=== PATIENT | female | born 1980 | race Caucasian/White ===

== ENCOUNTER → 2019-03-04 | Outpatient (CLI) | payer BC ==
--- NOTE | 2019-03-04 15:44 | Diagnostic Imaging Report ---
INDICATION: First trimester bleeding. There is an intrauterine gestational sac containing a pole. [place]-rump length measurement is approximately 13 mm consistent with 7 weeks 5 days. No heart motion could be detected consistent with embryonic demise. No perigestational sac hemorrhage is detected. Ovaries were not visualized due to overlying bowel gas. IMPRESSION: Findings consistent with 7 week 5 day intrauterine embryonic demise. Dictated by: Dictated on workstation # [id number]
== END ==
LOC: RAD 14:38
PROVIDERS: ATTEND Obstetrics & Gynecology
DX: O20.9 Hemorrhage in early pregnancy, unspecified (principal); Z87.59 Personal history of other complications of pregnancy, childbirth and the puerperium; Z3A.01 Less than 8 weeks gestation of pregnancy
CPT/HCPCS: 76801; 76817

== ENCOUNTER 2019-03-17 20:45 | Inpatient (IN) | payer BC ==
[~2019-03-17] VITALS: Ht 162.6 cm; Wt 101.2 kg
--- OUTSIDE RECORDS SUMMARY | 2019-03-17 20:50 | XMS REPORT ---
Author Author Migration, Doctor Organization [facility] Address Unknown Phone Unavailable Care Team Providers Care Residential Mental Health Worker Name Role Phone Migration, Doctor Unavailable Unavailable PROBLEMS Type Condition ICD9-CM Code IUK83-OG Code Onset Dates Condition Status SNOMED Code Problem General counseling for initiation of other contraceptive measures V25.02 Active 262814966192171 Problem Obesity, unspecified 278.00 Active 245889731 Problem Dietary surveillance and counseling V65.3 Active 143347140 ALLERGIES No Information ENCOUNTERS Encounter Location Date Diagnosis [place] [id number] [place] [phone] May, [place] [id number] [place] [phone] Mar, Major depressive disorder, single episode with anxious distress [address] [id number] [place] [phone] Mar, [place] [id number] [place] [phone] Mar, [place] [id number] [place] [phone] Mar, [place] [id number] [place] [phone] Mar, [place] [id number] [place] [address] [phone] March, [place] [id number] [place] [phone] Jan, IMMUNIZATIONS No Known Immunizations SOCIAL HISTORY Never Assessed REASON FOR VISIT [place] [place] VITAL SIGNS MEDICATIONS Medication Instructions Dosage Frequency Start Date End Date Duration Status Depo-Provera Contraceptive 150 mg/mL inject 150 mg by intramuscular route every 3 months March, Active RESULTS No Results PROCEDURES No Known procedures INSTRUCTIONS MEDICATIONS ADMINISTERED No Known Medications MEDICAL (GENERAL) HISTORY Type Description Date Medical History Pt has 7 children. The youngest is 8 months. She had 2 miscarriages.
[2019-03-17] MEDS ORDERED: ONDANSETRON 4 MG (ZOFRAN) ORAL DISSOLVE TAB PO STA (22:45)
[2019-03-17] MEDS ORDERED: ACETAMINOPHEN 500 MG TAB (TYLENOL) PO ONE (22:45)
[2019-03-17] MEDS ORDERED: NS IV 1000 ML 1,000 ML IV SCH ×2 (22:45→23:30)
[2019-03-17 22:47] LABS: CLARITY,URINE CLOUDY; COLOR,URINE YELLOW; GLUCOSE, URINE (UA) NEGATIVE (NEGATIVE); PH,URINE 8.5 (5-9); PROTEIN,URINE TRACE (NEGATIVE)
[2019-03-17 22:48] LABS: BACTERIA,URINE LARGE /HPF; BILIRUBIN,URINE NEGATIVE (NEGATIVE); KETONES,URINE NEGATIVE (NEGATIVE); LEUKOCYTE ESTERASE ,URINE 3+ (NEGATIVE); NITRITE,URINE POSITIVE (NEGATIVE); SQUAMOUS EPITHELIAL CELL,UR 0-2 /HPF; UROBILINOGEN,URINE 0.2 MG/DL (NORMAL)
[2019-03-17 23:01] LABS: HEMATOCRIT 34 % (35-52); HEMOGLOBIN 11.4 G/DL (11.5-16.0); MEAN CORPUSCULAR HEMOGLOBIN 30 PG (25-34); MEAN CORPUSCULAR HGB CONC 34 G/DL (32-36); MEAN CORPUSCULAR VOLUME 88 FL (80-99); MEAN PLATELET VOLUME 10.2 FL (7.4-10.4); PLATELET COUNT 302 10^3/uL (130-400); RED CELL DISTRIBUTION WIDTH 12.1 % (10.0-14.5); WHITE BLOOD COUNT 21.3 10^3/uL (4.3-11.0)
[2019-03-17 23:02] LABS: BASOPHILS % (AUTO) 0 % (0-10); EOSINOPHILS % (AUTO) 0 % (0-10); LYMPHOCYTES % (AUTO) 5 % (12-44); MONOCYTES % (AUTO) 5 % (0-12); NEUTROPHILS # (AUTO) 19.1 X 10^3 (1.8-7.8); NEUTROPHILS % (AUTO) 90 % (42-75)
[2019-03-17 23:14] LABS: BAND NEUTROPHILS 8 %; LYMPHOCYTES % (MANUAL) 4 %; MONOCYTES % (MANUAL) 3 %; NEUTROPHILS % (MANUAL) 84 %
[2019-03-17 23:15] LABS: BASOPHILS % (MANUAL) 0 %; EOSINOPHILS % (MANUAL) 0 %; METAMYELOCYTES % 0 %; MYELOCYTES % 1 %
--- NOTE | 2019-03-17 23:21 | ED Abdominal Pain ---
General Chief Complaint: Abdominal/GI Problems Stated Complaint: VOMITING, FEVER Nursing Triage Note: pt states abdominal and back pain since 10 am toda with n/v Sepsis Screen: No Definite Risk Source of Information: Patient History of Present Illness Date Seen by Provider: Mar 17, 2019 Time Seen by Provider: 23:21 Initial Comments 38-year-old female presenting with complaints of nausea, vomiting, fever and right flank pain. She states that she was feeling a little bit bad last night before going to bed. However this morning around 10 AM when she woke up she was feeling worse. She has had nausea and vomiting throughout the day. She denies any pain with urination. She has not had any frequency of urination. She denies having any foul discharge. Her vaginal bleeding from her recent miscarriage has been tapering off. She has no pain over the uterus or midline pain. She denies any change in her bowel movements. She denies having symptoms like this before. She was not keeping anything down at home. She did have an IUFD that was treated with medicine by Dr. Suzanna Sutton on March 04. She reports her vaginal bleeding from that is tapering off. Allergies and Home Medications Allergies Coded Allergies: No Known Drug Allergies (Unverified , 03/17/19) Home Medications No Active Prescriptions or Reported Meds Patient Home Medication List Home Medication List Reviewed: Yes Review of Systems Review of Systems Constitutional: chills, fever, malaise, weakness EENTM: No Symptoms Reported Respiratory: No Symptoms Reported Cardiovascular: No Symptoms Reported Gastrointestinal: See HPI, Abdominal Pain (right flank pain); Denies Constipated, Denies Diarrhea; Nausea, Vomiting Genitourinary: See HPI, Flank Pain (right sided flank pain) Musculoskeletal: see HPI, back pain (right sided flank pain) Skin: no symptoms reported Psychiatric/Neurological: No Symptoms Reported Endocrine: No Symptoms Reported Hematologic/Lymphatic: No Symptoms Reported Past Wweufir-Kmwchz-Gwljmu Hx Past Med/Social Hx: Reviewed Nursing Past Med/Soc Hx Patient Social History Alcohol Use: Denies Use Recreational Drug Use: No Smoking Status: Never a Smoker 2nd Hand Smoke Exposure: No Recent Foreign Travel: No Contact w/Someone Who Travel: No Recent Infectious Disease Expo: No Recent Hopitalizations: No Physical Abuse: No Sexual Abuse: No Mistreated: No Fear: No Seasonal Allergies Seasonal Allergies: No Past Medical History Surgeries: Yes Gallbladder Respiratory: No Cardiac: No Neurological: No Genitourinary: No Gastrointestinal: No Musculoskeletal: No Endocrine: No HEENT: No Cancer: No Psychosocial: No Integumentary: No Blood Disorders: No Physical Exam Vital Signs Vital Signs - First Documented 03/17/19 22:16 Temp 101.7 Pulse 126 Resp 15 B/P (MAP) 122/56 (78) Pulse Ox 97 O2 Delivery Room Air Capillary Refill : Less Than 3 Seconds Height/Weight/BMI Height: 5'5.00" Weight: 190lbs. oz. 86.843414gd; BMI Method:Stated General Appearance: WD/WN, moderate distress (appears ill and to not feel well) HEENT: PERRL/EOMI, other (dry mucus membranes) Neck: non-tender, supple Respiratory: chest non-tender, lungs clear, normal breath sounds, no respiratory distress, no accessory muscle use Cardiovascular: normal peripheral pulses, tachycardia Gastrointestinal: soft, no pulsatile mass, abnormal bowel sounds (hypoactive); No distended, No guarding, No rebound; tenderness (right flank pain wrapping around to her back and towards her kidney); No hernia, No mass Rectal: deferred Extremities: normal range of motion, non-tender, normal inspection, no pedal edema, no calf tenderness Back: CVA tenderness (R) Neurologic/Psychiatric: alert, oriented x 3 Skin: normal color, warm/dry; No rash Focused Exam Lactate Level 03/17/19 22:50: Lactic Acid Level 0.94 Lactic Acid Level Laboratory Tests Test 03/17/19 22:50 Lactic Acid Level 0.94 MMOL/L (0.50-2.00) Progress/Results/Core Measures Results/Orders Lab Results Laboratory Tests Test 03/17/19 22:30 03/17/19 22:50 Range/Units Urine Color YELLOW Urine Clarity CLOUDY Urine pH 8.5 5-9 Urine Specific [place] 1.010 L 1.016-1.022 Urine Protein TRACE NEGATIVE Urine Glucose (UA) NEGATIVE NEGATIVE Urine Ketones NEGATIVE NEGATIVE Urine Nitrite POSITIVE H NEGATIVE Urine Bilirubin NEGATIVE NEGATIVE Urine Urobilinogen 0.2 NORMAL MG/DL Urine Leukocyte Esterase 3+ H NEGATIVE Urine RBC (Auto) 3+ H NEGATIVE Urine RBC 2-5 H /HPF Urine WBC 10-25 H /HPF Urine Squamous Epithelial Cells 0-2 /HPF Urine Crystals NONE /LPF Urine Bacteria LARGE H /HPF Urine Casts NONE /LPF Urine Mucus NONE /LPF Urine Culture Indicated YES White Blood Count 21.3 H 4.3-11.0 10^3/uL Red Blood Count 3.83 L 4.35-5.85 10^6/uL Hemoglobin 11.4 L 11.5-16.0 G/DL Hematocrit 34 L 35-52 % Mean Corpuscular Volume 88 80-99 FL Mean Corpuscular Hemoglobin 30 25-34 PG Mean Corpuscular Hemoglobin Concent 34 32-36 G/DL Red Cell Distribution Width 12.1 10.0-14.5 % Platelet Count 302 130-400 10^3/uL Mean Platelet Volume 10.2 7.4-10.4 FL Neutrophils (%) (Auto) 90 H 42-75 % Lymphocytes (%) (Auto) 5 L 12-44 % Monocytes (%) (Auto) 5 0-12 % Eosinophils (%) (Auto) 0 0-10 % Basophils (%) (Auto) 0 0-10 % Neutrophils # (Auto) 19.1 H 1.8-7.8 X 10^3 Lymphocytes # (Auto) 1.0 1.0-4.0 X 10^3 Monocytes # (Auto) 1.0 0.0-1.0 X 10^3 Eosinophils # (Auto) 0.0 0.0-0.3 10^3/uL Basophils # (Auto) 0.0 0.0-0.1 10^3/uL Neutrophils % (Manual) 84 % Lymphocytes % (Manual) 4 % Monocytes % (Manual) 3 % Eosinophils % (Manual) 0 % Basophils % (Manual) 0 % Metamyelocytes % 0 % Myelocytes % 1 % Band Neutrophils 8 % Sodium Level 134 L 135-145 MMOL/L Potassium Level 3.5 L 3.6-5.0 MMOL/L Chloride Level 97 L 98-107 MMOL/L Carbon Dioxide Level 19 L 21-32 MMOL/L Anion Gap 18 H 5-14 MMOL/L Blood Urea Nitrogen 9 7-18 MG/DL Creatinine 0.62 0.60-1.30 MG/DL Estimat Glomerular Filtration Rate > 60 BUN/Creatinine Ratio 15 Glucose Level 129 H 70-105 MG/DL Lactic Acid Level 0.94 0.50-2.00 MMOL/L Calcium Level 8.9 8.5-10.1 MG/DL Corrected Calcium 8.8 8.5-10.1 MG/DL Total Bilirubin 0.7 0.1-1.0 MG/DL Aspartate Amino Transf (AST/SGOT) 12 5-34 U/L Alanine Aminotransferase (ALT/SGPT) 18 0-55 U/L Alkaline Phosphatase 48 40-136 U/L Total Protein 7.5 6.4-8.2 GM/DL Albumin 4.1 3.2-4.5 GM/DL My Orders Orders - BENJY MARTIN MD Ua Culture If Indicated (03/17/19 22:01) Cbc And Manual Diff (03/17/19 22:25) Comprehensive Metabolic Panel (03/17/19 22:25) Iv Heplock-Insert (Order) (03/17/19 22:28) Ns Iv 1000 Ml (Sodium Chloride 0.9%) (03/17/19 22:45) Acetaminophen Tablet (Tylenol Tablet) (03/17/19 22:45) Ondansetron Oral Dissolve Tab (Zofran (03/17/19 22:45) Urine Culture (03/17/19 22:30) Blood Culture (03/17/19 23:18) Lactic Acid Analyzer (03/17/19 23:18) Ceftriaxone For Iv Use (Rocephin For I (03/17/19 23:30) Ns Iv 1000 Ml (Sodium Chloride 0.9%) (03/17/19 23:30) Ketorolac Injection (Toradol Injection) (03/18/19 00:00) Fentanyl Injection (Sublimaze Injection (03/18/19 01:15) Ondansetron Injection (Zofran Injectio (03/18/19 01:15) Medications Given in ED Current Medications Medications Dose Ordered Sig/Fabrizio Route Start Time Stop Time Status Last Admin Dose Admin Acetaminophen 1,000 mg ONCE ONCE PO 03/17/19 22:45 03/17/19 22:46 DC 03/17/19 22:58 1,000 MG Ceftriaxone Sodium 1000 mg/ Sterile Water 10 ml @ 200 mls/hr ONCE ONCE IV 03/17/19 23:30 03/17/19 23:32 DC 03/18/19 00:07 200 MLS/HR Ketorolac Tromethamine 30 mg ONCE ONCE IVP 03/18/19 00:00 03/18/19 00:01 DC 03/18/19 00:06 30 MG Vital Signs/I&O 03/17/19 22:16 Temp 101.7 Pulse 126 Resp 15 B/P (MAP) 122/56 (78) Pulse Ox 97 O2 Delivery Room Air 03/18/19 00:00 Intake Total 1000 ml Balance 1000 ml Blood Pressure Mean: 78 Progress Progress Note #1: Time: 22:15 Progress Note check labs and give IVF for hydration with Zofran for nausea, Tylenol for fever. Progress Note #2: Time: 23:30 Progress Note On recheck her Urine is showing signs of UTI with nitrites, Bacteria, and WBC. She has elevated WBC to over 21K and left shift. She has normal Lactic acid. She reports feeling a little better after treatment was initiated and no more vomiting in the ED. She still has right flank pain and worse with palpation so will give Toradol and repeat IVF. Will give Rocephin 1 gm IV to help treat for UTI and what clinically appears to be pyelonephritis with her n/v and urine infection and fever with right flank pain. 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 Suzanna Sutton. Will check with Hospitalist, Dr. Hill who is electron tube assembler. For continued pain will try a dose of Fentanyl 50 mcg IV and give repeated Zofran dose so she does not start to get nauseated again with narcotic on board. Progress Note #4: Time: 01:12 Progress Note D/w Dr. Hill and she accepted admit. Will check a CT scan as well with her having continued pain and recent IUFD. Continue maintenance fluids and prn Fentanyl, Zofran, Toradol. Diagnostic Imaging Diagonstic Imaging: CT Plain Films/CT/US/NM/MRI: abdomen, pelvis Comments Stat Rad reading: Impression: 1. Mild left hydronephrosis secondary to a 2-3 mm stone in the left proximal ureter. 2. 5 cm right ovary with surrounding free fluid, possibly representing an underlying ruptured cyst. Recommend pelvic ultrasound. Radiologist: Dori Schofield MD. Study read at 0219 and initial results transmitted 0234. Reviewed: Reviewed Night [facility] Study, Reviewed by Me Departure Communication (Admissions) Time/Spoke to Admitting Phy: 01:[address] Hill at 0112 and she accepted pt for admit. Will continue with prn Toradol, Fentanyl, Zofran. Maintenance fluids. Check a CT scan of Abdomen/pelvis prior to transfer to [facility]. Impression Primary Impression: Acute pyelonephritis Additional Impressions: Nausea and vomiting in adult Acute right flank pain Disposition: ADMITTED INPATIENT Condition: Stable Admissions Decision to Admit Reason: Admit from ER (General) Decision to Admit/Date: Mar 18, 2019 Time/Decision to Admit Time: 01:12 Departure-Patient Inst. Referrals: CONOR SUTTON (PCP) Primary Care Physician Scripts No Active Prescriptions or Reported Meds Images Torso/Trunk 1 - Other-See Progress Note Progress right flank pain wrapping around from her back and kidney area. BENJY MARTIN MD Mar 17, 2019 23:21
[2019-03-17 23:23] LABS: ALANINE AMINOTRANSFERASE 18 U/L (0-55); ALKALINE PHOSPHATASE 48 U/L (40-136); BILIRUBIN,TOTAL 0.7 MG/DL (0.1-1.0); BUN/CREATININE RATIO 15; CALCIUM 8.9 MG/DL (8.5-10.1); CARBON DIOXIDE 19 MMOL/L (21-32); CHLORIDE 97 MMOL/L (98-107); CREATININE SERUM 0.62 MG/DL (0.60-1.30); GFR ESTIMATED > 60; GLUCOSE 129 MG/DL (70-105); POTASSIUM 3.5 MMOL/L (3.6-5.0); SODIUM 134 MMOL/L (135-145); TOTAL PROTEIN 7.5 GM/DL (6.4-8.2)
[2019-03-17 23:24] LABS: ALBUMIN 4.1 GM/DL (3.2-4.5)
[2019-03-17] MEDS ORDERED: cefTRIAXone FOR IV USE 1,000 MG in WATER (STERILE) FOR INJECTION 10 ML IV ONE (23:30)
[2019-03-18] VITALS (21 sets, daily range): BP systolic 90–140; BP diastolic 43–93
[2019-03-18] MEDS ORDERED: KETOROLAC 30 MG/ML VIAL IVP ONE
[2019-03-18] MEDS ORDERED: fentaNYL INJECTION 100 MCG/2 ML AMP IVP ONE (01:15)
[2019-03-18] MEDS ORDERED: ONDANSETRON 4 MG/2 ML (SDV) Z0FRAN IVP ONE (01:15)
[2019-03-18] MEDS ORDERED: NS 50 ML (IVPB) BAG IV ONE (01:45)
[2019-03-18] MEDS ORDERED: IOHEXOL 350 MG/ML 100 ML (OMNIPAQUE 350) VIAL IV ONE (01:45)
[2019-03-18] MEDS ORDERED: HOLD METFORMIN - RECEIVED CONTRAST 20 ML VIAL IV SCH (01:45)
[2019-03-18] MEDS ORDERED: CATHETER FLUSH 10 ML SYR IV PRN ×2 (01:45→05:00)
--- NOTE | 2019-03-18 03:45 | NUR ---
Report received from Elena in ED at 0243. Pt arrived to floor at 0345. DIOGENES BEARD admitted to room 411-1, with an admitting diagnosis of Acute pyelonephritis, on 03/18/19 from ED via EMS transfer, accompanied by EMS staff. DIOGENES BEARD introduced to surroundings, call light, bed controls, phone, TV, temperature control, lights, meal times, smoking policy, visitor policy, side rail policy, bathrooms and showers. Patient Rights given to patient in the handbook. DIOGENES BEARD verbalizes understanding that [facility] is not responsible for the loss or damage to any personal effects or valuables that are kept in the patients posession during their hospitalization. DIOGENES BEARD verbalizes understanding of Interdisciplinary Patient Education. Patient and/or family were informed about the Rapid Response Team and its purpose.
[2019-03-18] MEDS ORDERED: NS IV 1000 ML 1,000 ML ONE (04:11)
[2019-03-18] MEDS ORDERED: ONDANSETRON 4 MG/2 ML (SDV) Z0FRAN ONE (04:37)
[2019-03-18] MEDS ORDERED: fentaNYL INJECTION 100 MCG/2 ML AMP ONE (04:40)
[2019-03-18] MEDS ORDERED: fentaNYL INJECTION 100 MCG/2 ML AMP IV PRN (05:00)
[2019-03-18] MEDS: ONDANSETRON 4 MG/2 ML (SDV) Z0FRAN IV PRN ×2 (05:02→17:22)
[2019-03-18] MEDS: CATHETER FLUSH 10 ML SYR IV SCH ×3 (05:03→21:40)
[2019-03-18] MEDS: NS IV 1000 ML 1,000 ML IV SCH ×2 (05:03→09:46)
[2019-03-18 06:39] LABS: ALANINE AMINOTRANSFERASE 17 U/L (0-55); ALBUMIN 3.5 GM/DL (3.2-4.5); ALKALINE PHOSPHATASE 46 U/L (40-136); BILIRUBIN,TOTAL 0.7 MG/DL (0.1-1.0); BUN/CREATININE RATIO 11; CALCIUM 8.1 MG/DL (8.5-10.1); CARBON DIOXIDE 16 MMOL/L (21-32); CHLORIDE 107 MMOL/L (98-107); GFR ESTIMATED > 60; GLUCOSE 127 MG/DL (70-105); POTASSIUM 3.8 MMOL/L (3.6-5.0); SODIUM 137 MMOL/L (135-145); TOTAL PROTEIN 6.2 GM/DL (6.4-8.2)
--- NOTE | 2019-03-18 07:17 | Diagnostic Imaging Report ---
PROCEDURE: CT abdomen and pelvis with contrast. TECHNIQUE: Multiple contiguous axial images were obtained through the abdomen and pelvis after administration of intravenous contrast. Auto Exposure Controls were utilized during the CT exam to meet ALARA standards for radiation dose reduction. INDICATION: Right flank pain Lung bases are clear. Liver appears normal. Gallbladder is surgically absent. Pancreas is normal. Spleen is not enlarged. Adrenals are normal. There is mild right hydronephrosis. There is a 1 mm calcification in the distal right ureter seen on page 78. This is near the ureterovesical junction. There is a 5 mm stone in the proximal left ureter but is not causing any appreciable obstruction. The appendix is normal. Small bowel is not dilated. There is no intraperitoneal free air or free fluid. Urinary bladder is normal. Uterus is unremarkable. Left adnexa is normal. There is a complex lesion in the right adnexa measuring 4.2 x 7.6 x 5.0 cm. This has fluid and soft tissue components. There is no calcification or air within it. IMPRESSION: There appear to be stones in both ureters. On the right appears to be approximately a 1 mm stone faintly seen near the right ureterovesical junction. There is mild hydronephrosis of the right kidney. There is a 5 mm stone in the proximal left ureter that is not causing any obvious obstruction. There is a complex mass of the right adnexa. Differential considerations would include ectopic , tubo-ovarian abscess or neoplasm. Further evaluation with ultrasound recommended I agree with preliminary interpretation. Dictated by: Dictated on workstation # [id number]
[2019-03-18 07:21] LABS: BASOPHILS % (AUTO) 0 % (0-10); EOSINOPHILS % (AUTO) 0 % (0-10); HEMATOCRIT 33 % (35-52); LYMPHOCYTES % (AUTO) 4 % (12-44); MEAN CORPUSCULAR HEMOGLOBIN 30 PG (25-34); MEAN CORPUSCULAR HGB CONC 33 G/DL (32-36); MEAN CORPUSCULAR VOLUME 90 FL (80-99); MEAN PLATELET VOLUME 10.3 FL (7.4-10.4); MONOCYTES % (AUTO) 7 % (0-12); NEUTROPHILS # (AUTO) 26.5 X 10^3 (1.8-7.8); NEUTROPHILS % (AUTO) 90 % (42-75); PLATELET COUNT 258 10^3/uL (130-400); RED CELL DISTRIBUTION WIDTH 12.5 % (10.0-14.5); WHITE BLOOD COUNT 29.6 10^3/uL (4.3-11.0)
[2019-03-18] MEDS: KETOROLAC 30 MG/ML VIAL IV PRN ×2 (07:59→13:29)
[2019-03-18 08:00] LABS: LYMPHOCYTES % (MANUAL) 1 %; MONOCYTES % (MANUAL) 4 %; NEUTROPHILS % (MANUAL) 95 %; RBC MORPH NORMAL
[2019-03-18] MEDS ORDERED: ACETAMINOPHEN 650 MG SUPP (TYLENOL) PR PRN (08:15)
[2019-03-18] MEDS ORDERED: HYDROmorphone 2 MG/ML VIAL (DILAUDID) ONE (08:30)
[2019-03-18] MEDS: HYDROmorphone 2 MG/ML VIAL (DILAUDID) IV PRN (08:38)
[2019-03-18] MEDS ORDERED: PIPERACILLIN/TAZO 4.5 GM/NS 100 ML IV NR ×2 (08:45)
[2019-03-18] MEDS ORDERED: NS IV 1000 ML 1,000 ML IV SCH (08:45)
--- NOTE | 2019-03-18 08:49 | Pulmonary Consultation ---
History of Present Illness History of Present Illness Date of Consultation 03/18/19 08:43 Time Seen by Provider: 15:27 Date of Admission History of Present Illness 38yo with recent miscarriage presented to ED secondary to worsening N/V, right flank pain, and fever. No dysuria and no abnormal vaginal discharge. Vaginal bleeding has improved. Pt did have a IUFD. I was called by Dr. Hill to see pt on a urgent bases secondary to worsening sepsis. Pt has worsening abdominal pain 09/09. I am going to send her to ICU. I have discussed patient with Dr. Costa, and Dr. Hill. 3 Allergies and Home Medications Allergies Coded Allergies: No Known Drug Allergies (Unverified , 03/17/19) Home Medications No Active Prescriptions or Reported Meds Past Hicatht-Vrbhkg-Wdhbws Hx Past Med/Social Hx: Reviewed Nursing Past Med/Soc Hx Patient Social History Alcohol Use: Denies Use Recreational Drug Use: No Smoking Status: Never a Smoker 2nd Hand Smoke Exposure: No Recent Foreign Travel: No Contact w/Someone Who Travel: No Recent Infectious Disease Expo: No Recent Hopitalizations: No Physical Abuse: No Sexual Abuse: No Mistreated: No Fear: No Immunizations Up To Date Date of Pneumonia Vaccine: Mar 18, 2014 Seasonal Allergies Seasonal Allergies: No Past Medical History Surgeries: Yes Gallbladder Respiratory: No Cardiac: No Neurological: No Genitourinary: No Gastrointestinal: No Musculoskeletal: No Endocrine: No HEENT: No Cancer: No Psychosocial: No Integumentary: No Blood Disorders: No Review of Systems Time Seen by Provider: 15:27 Constitutional: Fever, Chills, Sweats, Weakness, Malaise, Other Eyes: No: Pain, Vision change, Conjunctivae inflammation, Eyelid inflammation, Other, Redness ENT: No: Ear pain, Ear discharge, Nose pain, Nose discharge, Nose congestion, Mouth pain, Mouth swelling, Throat pain, Throat swelling, Other Respiratory: No: Cough, Dry, Shortness of breath, SOB with excertion, Wheezing , Hemoptysis, Pleuritic Pain, Sputum, Wheezing, Other Cardiovascular: No: Chest Pain, Palpitations, Orthopnea, Paroxysmal Noc. Dyspnea, Edema, Lt Headedness, Other Gastrointestinal: Nausea, Vomiting, Abdominal Pain, Constipation Genitourinary: No Dysuria, No Frequency, No Incontinence, No Hematuria, No Retention, No Other Sepsis Event Evaluation Height, Weight, BMI Height: 5'4.00" Weight: 223lbs. 0.0oz. 101.368578zj; 38.3 BMI Method:Stated Exam Exam Vital Signs Date Time Temp Pulse Resp B/P (MAP) Pulse Ox O2 Delivery O2 Flow Rate FiO2 03/18/19 08:38 101.4 03/18/19 07:59 101.4 03/18/19 03:45 100.5 124 20 140/78 (98) 100 Room Air 03/18/19 03:45 100.5 124 20 140/78 100 Room Air 03/18/19 03:45 98 Room Air 03/18/19 03:04 98.5 116 16 113/60 (77) 98 03/17/19 22:16 101.7 126 15 122/56 (78) 97 Room Air I & O 03/18/19 07:00 Intake Total 2009 ml Balance 2009 ml Height & Weight Height: 5'4.00" Weight: 223lbs. 0.0oz. 101.526302iy; 38.3 BMI Method:Stated General Appearance: Anxious, Moderate Distress HEENT: PERRL/EOMI, Normal ENT Inspection, Pharynx Normal Neck: Full Range of Motion, Normal Inspection, Non Tender, Supple Respiratory: Chest Non Tender, Lungs Clear, Normal Breath Sounds, No Accessory Muscle Use, No Respiratory Distress Cardiovascular: Regular Rate, Rhythm, No Edema, No Gallop, No JVD, No Murmur, Normal Peripheral Pulses Capillary Refill: Less Than 3 Seconds Gastrointestinal: soft, no pulsatile mass, abnormal bowel sounds (hypoactive); No distended, No guarding, No rebound; tenderness (right flank pain wrapping around to her back and towards her kidney); No hernia, No mass Extremity: Normal Capillary Refill, Normal Inspection, No Pedal Edema Neurologic/Psychiatric: Alert, Oriented x3 Skin: Normal Color, Warm/Dry Lymphatic: No Adenopathy Results Lab Laboratory Tests 03/17/19 22:50 03/18/19 05:25 03/18/19 07:15 Assessment/Plan Assessment/Plan Sepsis secondary to UTI vs intraabdominal -US pending of abdomen -CT scan reviewed with Dr. Costa -Suman cultures are pending -Dr. Meredith is also following Abdominal pain with Abscess VS ovarian mass -Check abdominal US -Transfer to ICU -Start severe sepsis protocol -Dr. Costa consulted -Give 1 liter of IVF now -Recheck LA - Sinus tach secondary to sepsis -Transfer to ICU UTI Anemia -Monitor Bilateral ureteral stone - nonobstructing -Urology is following Metabolic acidosis -IVF -Monitor Miscarriage was 03/04 -Dr. Meredith following CHARLY OLIVER DO Mar 18, 2019 08:49
[2019-03-18] MEDS ORDERED: LACTATED RINGERS IV PRN (09:00)
[2019-03-18] MEDS ORDERED: LEVOFLOXACIN 500 MG/100 ML IV 100 ML IV SCH (09:00)
--- NOTE | 2019-03-18 09:06 | Consultation ---
History of Present Illness History of Present Illness Patient Consulted On(vijay/time) 03/18/19 09:01 Time Seen by Provider: 08:37 History of Present Illness Surgery asked to consult regarding Acute Abdomen. HPI per ED: 38-year-old female presenting with complaints of nausea, vomiting, fever and right flank pain. She states that she was feeling a little bit bad last night before going to bed. However this morning around 10 AM when she woke up she was feeling worse. She has had nausea and vomiting throughout the day. She denies any pain with urination. She has not had any frequency of urination. She denies having any foul discharge. Her vaginal bleeding from her recent miscarriage has been tapering off. She has no pain over the uterus or midline pain. She denies any change in her bowel movements. She denies having symptoms like this before. She was not keeping anything down at home. She did have an IUFD that was treated with medicine by Dr. Suzanna Meredith on March 04. She reports her vaginal bleeding from that is tapering off. When I spoke to pt this am she states her pain is 10 out of 10, mostly suprapubic and RLQ. Movements make the pain worse. It is a sharp stabbing and continuous pain. Only pain medicines are helping with the pain. Allergies and Home Medications Allergies Coded Allergies: No Known Drug Allergies (Unverified , 03/17/19) Home Medications No Active Prescriptions or Reported Meds Patient Home Medication List Home Medication List Reviewed: Yes Past Cmctnue-Gxezmo-Jnpdwh Hx Patient Social History Alcohol Use: Denies Use Recreational Drug Use: No Smoking Status: Never a Smoker 2nd Hand Smoke Exposure: No Recent Foreign Travel: No Contact w/Someone Who Travel: No Recent Infectious Disease Expo: No Recent Hopitalizations: No Immunizations Up To Date Date of Pneumonia Vaccine: Mar 18, 2014 Seasonal Allergies Seasonal Allergies: No Surgeries History of Surgeries: Yes Surgeries: Section, Gallbladder Respiratory History of Respiratory Disorde: No Cardiovascular History of Cardiac Disorders: No Neurological History of Neurological Disord: No Reproductive System : No Hx Total # of Abortions (Spona: 1 Hx Reproductive Disorders: No Sexually Transmitted Disease: No Genitourinary History of Genitourinary Disor: No Gastrointestinal History of Gastrointestinal Di: No Musculoskeletal History of Musculoskeletal Dis: No Endocrine History of Endocrine Disorders: No HEENT History of HEENT Disorders: No Cancer History of Cancer: No Psychosocial History of Psychiatric Problem: No Integumentary History of Skin or Integumenta: No Blood Transfusions History of Blood Disorders: No Family Medical History Significant Family History: Heart Disease (Mother), Diabetes (Father), Hypertension (Mother) Review of Systems-General Constitutional: chills, diaphoresis, fever, malaise, weakness EENTM: No eye pain, No mouth pain, No mouth swelling, No epistaxis Respiratory: No cough, No dyspnea on exertion, No hemoptysis Cardiovascular: No chest pain, No edema, No palpitations Gastrointestinal: RLQ, abdominal pain; No constipation, No diarrhea, No dysphagia, No jaundice; nausea, vomiting Genitourinary: No dysuria, No frequency, No hematuria Musculoskeletal: back pain; No joint pain, No joint swelling; muscle stiffness Skin: No change in color, No change in hair/nails Psychiatric/Neurological: Denies Anxiety, Denies Depressed; Headache; Denies Tremors Other pt denies any abnormal bruising or bleeding, no heat or cold intolerance Physical Exam-General Problems Physical Exam Vital Signs Vital Signs - First Documented 03/17/19 22:16 Temp 101.7 Pulse 126 Resp 15 B/P (MAP) 122/56 (78) Pulse Ox 97 O2 Delivery Room Air Capillary Refill : Less Than 3 Seconds General Appearance: WD/WN, moderate distress Eyes: Bilateral Eye PERRL, Bilateral Eye EOMI HEENT: pharynx normal; No scleral icterus (R), No scleral icterus (L), No pale conjunctivae (R), No pale conjunctivae (L) Neck: non-tender, full range of motion, supple, normal inspection Respiratory: chest non-tender, lungs clear, normal breath sounds, no respiratory distress, no accessory muscle use Cardiovascular: no edema, no murmur, tachycardia Gastrointestinal: no organomegaly, no pulsatile mass, distended, guarding, tenderness (Diffusely but most in RLQ and suprapubic) Back: no CVA tenderness, no vertebral tenderness Extremities: normal range of motion, non-tender, normal inspection, no pedal edema, no calf tenderness Neurologic/Psychiatric: report analyst II-XII nml as tested, no motor/sensory deficits, alert, normal mood/affect, oriented x 3 Skin: normal color, damp Lymphatic: no adenopathy (neck, axilla or groin) Data Review Labs Laboratory Tests 03/17/19 22:30: Urine Color YELLOW, Urine Clarity CLOUDY, Urine pH 8.5, Urine Specific [place] 1.010L, Urine Protein TRACE, Urine Glucose (UA) NEGATIVE, Urine Ketones NEGATIVE , Urine Nitrite POSITIVEH, Urine Bilirubin NEGATIVE, Urine Urobilinogen 0.2, Urine Leukocyte Esterase 3+H, Urine RBC (Auto) 3+H, Urine RBC 2-5H, Urine WBC 10 -25H, Urine Squamous Epithelial Cells 0-2, Urine Crystals NONE, Urine Bacteria LARGEH, Urine Casts NONE, Urine Mucus NONE, Urine Culture Indicated YES 03/17/19 22:50: White Blood Count 21.3H, Red Blood Count 3.83L, Hemoglobin 11.4L, Hematocrit 34L , Mean Corpuscular Volume 88, Mean Corpuscular Hemoglobin 30, Mean Corpuscular Hemoglobin Concent 34, Red Cell Distribution Width 12.1, Platelet Count 302, Mean Platelet Volume 10.2, Neutrophils (%) (Auto) 90H, Lymphocytes (%) (Auto) 5L , Monocytes (%) (Auto) 5, Eosinophils (%) (Auto) 0, Basophils (%) (Auto) 0, Neutrophils # (Auto) 19.1H, Lymphocytes # (Auto) 1.0, Monocytes # (Auto) 1.0, Eosinophils # (Auto) 0.0, Basophils # (Auto) 0.0, Neutrophils % (Manual) 84, Lymphocytes % (Manual) 4, Monocytes % (Manual) 3, Eosinophils % (Manual) 0, Basophils % (Manual) 0, Metamyelocytes % 0, Myelocytes % 1, Band Neutrophils 8, Sodium Level 134L, Potassium Level 3.5L, Chloride Level 97L, Carbon Dioxide Level 19L, Anion Gap 18H, Blood Urea Nitrogen 9, Creatinine 0.62, Estimat Glomerular Filtration Rate > 60, BUN/Creatinine Ratio 15, Glucose Level 129H, Lactic Acid Level 0.94, Calcium Level 8.9, Corrected Calcium 8.8, Total Bilirubin 0.7, Aspartate Amino Transf (AST/SGOT) 12, Alanine Aminotransferase ( ALT/SGPT) 18, Alkaline Phosphatase 48, Total Protein 7.5, Albumin 4.1 03/18/19 05:25: Sodium Level 137, Potassium Level 3.8, Chloride Level 107, Carbon Dioxide Level 16L, Anion Gap 14, Blood Urea Nitrogen 8, Creatinine 0.70, Estimat Glomerular Filtration Rate > 60, BUN/Creatinine Ratio 11, Glucose Level 127H, Calcium Level 8.1L, Corrected Calcium 8.5, Total Bilirubin 0.7, Aspartate Amino Transf ( AST/SGOT) 18, Alanine Aminotransferase (ALT/SGPT) 17, Alkaline Phosphatase 46, Total Protein 6.2L, Albumin 3.5 03/18/19 07:15: White Blood Count 29.6H, Red Blood Count 3.67L, Hemoglobin 11.0L, Hematocrit 33L , Mean Corpuscular Volume 90, Mean Corpuscular Hemoglobin 30, Mean Corpuscular Hemoglobin Concent 33, Red Cell Distribution Width 12.5, Platelet Count 258, Mean Platelet Volume 10.3, Neutrophils (%) (Auto) 90H, Lymphocytes (%) (Auto) 4L , Monocytes (%) (Auto) 7, Eosinophils (%) (Auto) 0, Basophils (%) (Auto) 0, Neutrophils # (Auto) 26.5H, Lymphocytes # (Auto) 1.0, Monocytes # (Auto) 2.0H, Eosinophils # (Auto) 0.0, Basophils # (Auto) 0.0, Neutrophils % (Manual) 95, Lymphocytes % (Manual) 1, Monocytes % (Manual) 4, Blood Morphology Comment NORMAL 03/18/19 08:55: Assessment/Plan Assessment/Plan Assessment/Plan Acute Abdominal pain - RLQ Septic Ovarian mass - R/O TOA vs. Torsed Ovary vs. Ruptured Hemorrhagic ovarian cyst I reviewed the CT myself and the Radiologist; we were able to find the appendix , so this is all ovarian in nature. I am unsure if this is an abscess, torsed ovary or just a very bad cyst. She appears septic with WBC increasing and is being sent to the ICU with fluids, IV ABX and pain control. She is scheduled to go down as soon as possible for a vaginal US to look at this area and may still need to go for Diagnostic Laparoscopy. She denies any hx of STD and is monogamous; therefore TOA is lower on the list. Will make more recommendations after we get US results. Clinical Quality Measures DVT/VTE Risk/Contraindication: Risk Factor Score Per Nursin RFS Level Per Nursing on Admit: 2=Moderate NATALIYA MENG DO Mar 18, 2019 09:06
--- NOTE | 2019-03-18 09:26 | History & Physical-Hospitalist ---
History of Present Illness HPI/Chief Complaint CC: Severe abdominal pain with fever and tachycardia HPI: This is a 38-year-old white female who was transferred from [facility] due to acute pyelonephritis with fever of 101 but since she has had a recent procedure as I understood by Dr. Meredith some sort of uterine procedure I requested a CT scan and that was done revealing bilateral kidney stones in addition to a very large right deep pelvic mass that was a new finding per CT scan. She had suffered a miscarriage 2 weeks ago did not require a procedure as originally thought placed on methotrexate for medical removal of the miscarriage and her quantitative hCG was monitored by Dr. Meredith. Upon evaluation of the CT scan and considering her tachycardia and continued fever and 1 dose of Rocephin that was given early this morning in the ER she was placed on double coverage of Zosyn and Levaquin and Dr. Branham was consulted who gave her a fluid bolus and transferred up to the ICU for severe sepsis in addition to DrEren Edmond was consulted for urgent need of surgery which will be completed today to remove the mass in addition to for kidney stones with mild hydronephrosis. Currently she is just fatigued and having severe right lower quadrant abdominal pain with rebound but improved with Dilaudid. I appreciate all consultants help on this very complex case. Source: patient, RN/MD, old records Exam Limitations: no limitations Date Seen 03/18/19 Time Seen by a Provider: 09:00 Attending Physician Linda Sue Angela Referring Physician Date of Admission Mar 18, 2019 at 01:12 Home Medications & Allergies Home Medications Reviewed patient Home Medication Reconciliation performed by pharmacy medication reconciliations commercial pest control technician and/or nursing. Patients Allergies have been reviewed. Allergies Allergies Coded Allergies No Known Drug Allergies (Unverified03/17/19) Past Bayghgy-Czeuea-Ykpgnh Hx Past Med/Social Hx: Reviewed Nursing Past Med/Soc Hx, Reviewed and Corrections made Patient Social History Alcohol Use: Denies Use Recreational Drug Use: No Smoking Status: Never a Smoker 2nd Hand Smoke Exposure: No Recent Foreign Travel: No Contact w/other who traveled: No Recent Hopitalizations: No Recent Infectious Disease Expo: No Immunizations Up To Date Date of Pneumonia Vaccine: Mar 18, 2014 Seasonal Allergies Seasonal Allergies: No Past Medical History Surgeries: Section, Gallbladder : No Hx Total # of Abortions(Spont): 1 Reproductive: No Sexually Transmitted Disease: No History of Blood Disorders: No Family History Heart Disease (Mother), Diabetes (Father), Hypertension (Mother) Review of Systems Constitutional: see HPI, chills, diaphoresis, dizziness, fever, malaise, weakness EENTM: no symptoms reported Respiratory: no symptoms reported Cardiovascular: no symptoms reported Gastrointestinal: abdominal pain (RLQ), loss of appetite, nausea, vomiting Genitourinary: decreased output, frequency Musculoskeletal: back pain Skin: no symptoms reported Psychiatric/Neurological: No Symptoms Reported All Other Systems Reviewed Negative Unless Noted: Yes Physical Exam Physical Exam Vital Signs Vital Signs - First Documented 03/17/19 22:16 Temp 101.7 Pulse 126 Resp 15 B/P (MAP) 122/56 (78) Pulse Ox 97 O2 Delivery Room Air Capillary Refill : Less Than 3 Seconds Height, Weight, BMI Height: 5'4.00" Weight: 223lbs. 0.0oz. 101.136684ih; 38.3 BMI Method:Stated General Appearance: WD/WN, Anxious, Moderate Distress HEENT: PERRL/EOMI, TMs Normal, Normal ENT Inspection, Pharynx Normal, Moist Mucous Membranes Neck: Full Range of Motion, Normal Inspection, Non Tender Respiratory: Chest Non Tender, Lungs Clear, Normal Breath Sounds, No Accessory Muscle Use, No Respiratory Distress Cardiovascular: No Edema, No Gallop, No JVD, No Murmur, Normal Peripheral Pulses, Tachycardia Gastrointestinal: Abnormal Bowel Sounds, Distended, Guarding, Mass, Rebound, Tenderness Back: Normal Inspection, No CVA Tenderness, No Vertebral Tenderness Extremity: Normal Capillary Refill, Normal Inspection, Normal Range of Motion, Non Tender, No Calf Tenderness, No Pedal Edema Neurologic/Psychiatric: Alert, Oriented x3, No Motor/Sensory Deficits, Normal Mood/Affect Skin: Normal Color, Warm/Dry Results Results/Procedures Labs Laboratory Tests 03/17/19 22:50 03/18/19 05:25 03/18/19 07:15 Patient resulted labs reviewed. Assessment/Plan Admission Diagnosis Assessment: Severe sepsis Tachycardia Acute abdomen in need of urgent surgery Right lower quadrant abdominal mass in need of urgent surgery by Dr. Costa Recent miscarriage hCG quantitative 92 Fever New kidney stones Pyelonephritis Leukocytosis worsened so added double coverage Zosyn and Levaquin antibiotics after 1 dose of Rocephin given Plan: ICU transfer line IV fluid bolus Appreciate Dr. Branham consultation Dr. Costa will take patient to surgery urgently today Zosyn and Levaquin double coverage until cultures completed Dr. Valero consulted appreciate his recommendations for kidney stones Admission Status: Inpatient Order (span 2 midnights) Reason for Inpatient Admission: Acute abdomen with severe sepsis Critical Care Critically Ill Patient Diagnosis/Problems Diagnosis/Problems (1) Severe sepsis Status: Acute (2) Acute abdomen Status: Acute (3) Abdominal or pelvic swelling, mass, or lump, right lower quadrant Status: Acute (4) Leukocytosis Status: Acute (5) Tachycardia Status: Acute (6) Miscarried within last 12 months Status: Acute (7) Rebound abdominal tenderness Status: Acute (8) Acute pyelonephritis Status: Acute (9) Nausea and vomiting in adult Status: Acute (10) Acute right flank pain Status: Acute (11) Metabolic acidosis Status: Acute (12) Kidney stones Status: Acute (13) Hydronephrosis Status: Acute Qualifiers: Hydronephrosis type: with renal calculous obstruction Qualified Codes: N13.2 - Hydronephrosis with renal and ureteral calculous obstruction Clinical Quality Measures DVT/VTE Risk/Contraindication: Risk Factor Score Per Nursin RFS Level Per Nursing on Admit: 2=Moderate LINDA SUE DO Mar 18, 2019 09:26
--- NOTE | 2019-03-18 09:30 | NUR ---
Patient transferred to ICU5 at this time per Dr. Branham and Liz's orders. Bedside report given to JOSH Hua. Patient oriented to new room and hooked up to monitors.JOSH Hua to assume care of patient at this time.
--- NOTE | 2019-03-18 09:32 | Consultation ---
History of Present Illness History of Present Illness Patient Consulted On(vijay/time) 03/18/19 09:27 Date Seen by Provider: Mar 18, 2019 Time Seen by Provider: 10:45 Reason for Visit: Right lower quadrant pain and mass History of Present Illness 38 year old female admitted to Dr. Hill for fever and pyelonephritis. She presented to the ED at [facility] with complaint of right lower quadrant. There she was febrile with white count of 21,000, normal lactic acid and uine with WBC, nitrites, bacteria consistent with UIT/pyelonephtiris. She was transferred to [facility] for admission to the hospitalist service. CT done in the ED at [facility], there was a 5-6 cm complex ovarian mass. She states that she was at work on Friday night and began having right lower quadrant pain. States she didn't leave work and that she was having pain with movement and palpation of the side. This has been associated with nausea and palpation. She has had pain medication and received Rocephin in the ED. States that the pain is better after the pain medication. She states she also feels achy with muscle aches and pains. States that the pain radiates to the flank and back on the right side and to the left abdomen, She states it was 10/ 10 but now is 4/10 (after pain medications). She had a repeat CT today and this confirmed a complex right adnexal mass in the right adnexa and also mild right hydronephrosis and stones in both the right and left kidnets. She Currently is complaining of a headache but that has started since receiving pain medication. She has no chest pain, no cough, no change in bowel function. Patient is a with recent miscarriage. I saw her 03/04/19 for treatment of miscarriage. She has stopped bleeding since miscarriage. Miscarriage was / (US showed 7 week demise, but did not visualize the ovaries). Has not yet had a follow up HCG. Last HCG was 03/04 and was 15,000. Had medical management with misoprostol and called us 03/08 stating she thought she had completed miscarriage and was instructed to have follow up HCG 1-2 weeks after bleeding had stopped. Last HCG was 15,000 and has not had repeat HCG. she has no abnormal discharge. She is in a monogamous relationship. No history of PID Allergies and Home Medications Allergies Coded Allergies: No Known Drug Allergies (Unverified , 03/17/19) Home Medications No Active Prescriptions or Reported Meds Patient Home Medication List Home Medication List Reviewed: Yes Past Cxitvjt-Svgnfg-Dmrghb Hx Past Med/Social Hx: Reviewed Nursing Past Med/Soc Hx Patient Social History Alcohol Use: Denies Use Recreational Drug Use: No Smoking Status: Never a Smoker 2nd Hand Smoke Exposure: No Recent Foreign Travel: No Contact w/Someone Who Travel: No Recent Infectious Disease Expo: No Recent Hopitalizations: No Physical Abuse: No Sexual Abuse: No Mistreated: No Fear: No Immunizations Up To Date Date of Pneumonia Vaccine: Mar 18, 2014 Seasonal Allergies Seasonal Allergies: No Past Medical History Surgeries: Yes Section, Gallbladder Respiratory: No Cardiac: No Neurological: No : No Hx : 12 Hx Para: 7 Hx Total # of Abortions (Sp): 5 Reproductive Disorders: No Sexually Transmitted Disease: No Genitourinary: No Gastrointestinal: No Musculoskeletal: No Endocrine: No HEENT: No Cancer: No Psychosocial: No Integumentary: No Blood Disorders: No Family Medical History Heart Disease (Mother), Diabetes (Father), Hypertension (Mother) Review of Systems-General Constitutional: fever, malaise EENTM: no symptoms reported Respiratory: no symptoms reported Cardiovascular: no symptoms reported Gastrointestinal: RLQ, abdominal pain (RLQ), nausea, vomiting Genitourinary: pain : No Musculoskeletal: muscle pain Skin: no symptoms reported Psychiatric/Neurological: No Symptoms Reported All Other Systems Reviewed Negative Unless Noted: Yes Physical Exam-General Problems Physical Exam Vital Signs Vital Signs - First Documented 03/17/19 22:16 Temp 101.7 Pulse 126 Resp 15 B/P (MAP) 122/56 (78) Pulse Ox 97 O2 Delivery Room Air Capillary Refill : Less Than 3 Seconds General Appearance: mild distress Respiratory: chest non-tender, normal breath sounds Cardiovascular: regular rate, rhythm, tachycardia Gastrointestinal: No soft, No no organomegaly, No no pulsatile mass; distended ; No guarding, No rebound; tenderness, other (decreased bowel sounds) Genital/Rectal: normal vaginal exam Back: normal inspection, CVA tenderness (R) Neurologic/Psychiatric: alert, normal mood/affect, oriented x 3 Skin: normal color, warm/dry Lymphatic: no adenopathy Assessment/Plan Assessment/Plan Admission Diagnosis/Plan 1. pyelonephritis 2. Nephrolithiasis 3. Right adnexal mass 4. Recent miscarriage Transvaginal US was done. There is a complex adnexal cyst with no free fluid in the pelvis. This is suggestive of a hemorrhagic cyst. This may have been ovulatory (timing is consistent). She has completed the miscarriage. HCG is 92. There is a small amount of tissue in the uterus but not consistent with retained products of conception. There is no evidence of ectopic . She has no risk factors for tuboovarian abscess and the cystic lesion is not suggestive or an abscess. I suspect this finding is incidental. Fever and leukocytosis are consistent with pyelonephritis. She has received Rocephin and now Zosyn and Levaquin. She is receiving Toradol and Fentanyl. At this point will defer surgery to treatment of kidney stones if necessary. Will manage the ovarian cyst conservatively but if there is no improvement in symptoms and labs in 24-48 hours, then may consider diagnostic laparoscopy and possible RSO. Clinical Quality Measures DVT/VTE Risk/Contraindication: Risk Factor Score Per Nursin RFS Level Per Nursing on Admit: 2=Moderate JANE SUTTON DO Mar 18, 2019 09:32
[2019-03-18] MEDS: LACTATED RINGERS 1,000 ML IV SCH ×4 (09:47→21:40)
[2019-03-18 10:00] LABS: ABG BASE EXCESS -4.2 MMOL/L (-2.5-2.5); ABG OXYGEN SATURATION 99 % (94-100); ABG PCO2 31 MMHG (35-45); ABG PH 7.42 (7.37-7.43); ABG PO2 100 MMHG (79-93); ABG TCO2 20.5 MMOL/L (21.0-31.0)
[2019-03-18 10:08] LABS: ALLENS TEST YES-POS; INSPIRED O2 ROOM AIR; PATIENT TEMP 97.9; VENTILATOR NO
--- NOTE | 2019-03-18 11:44 | Diagnostic Imaging Report ---
Indication: Right adnexal mass Comparison made with CT from earlier in the day. Uterus is enlarged measuring 13.1 x 6.7 x 6.0 cm. Endometrium measures 13 mm in thickness. There is some fluid posterior wall of the endometrium which is irregular and has some vascularity. With the history of recent miscarriage this raises concern for possibility of retained products of conception. There is a complex cystic mass in the right adnexa with solid and fluid components. There is one echogenic band that has some vascularity. The remainder of the structure is avascular. Impression: Thickened and irregular endometrium. Retained products of conception cannot be excluded. Complex cystic mass right adnexa. Dictated by: Dictated on workstation # [id number]
--- NOTE | 2019-03-18 14:13 | CONSULTATION REPORT ---
DATE OF SERVICE: 03/18/2019 ATTENDING PHYSICIAN: Dr. Hill. SUMMARY: A 38-year-old white lady admitted with abdominal pain, mostly in the lower abdomen and some on the right side. She had a CT scan that revealed 1 mm stone distal right ureter. It was very mild obstruction and a 5 mm stone in the left UPJ with no obstruction. She was found also to have a complex mass in the tubo-ovarian area on the right side, which seems to be causing most of her pain. She was transferred from the floor to the ICU for possible sepsis. She was running fever and chills. She does not really look very sick when I saw her. Her abdomen is mostly tender in the lower part on the right side. There is no CVA tenderness. IMPRESSION: 1. Right tubo-ovarian mass, possible abscess. 2. Bilateral ureteral stone, nonobstructing and passable. RECOMMENDATION: Proceed with the treatment of the tubo-ovarian problem. The right distal ureteral stone is a passable one and the left one, if it remains in that position, it would be amenable for ESWL on Friday. If it drops down, it would be amenable for ureteroscopy unless she passes it on its own, which is a good chance. For the time being, we will observe. Continue the IV fluid and IV antibiotics. I will be going for the ; however, I will be in touch and contact if she needs anything and the plan was fully explained to the patient. Job ID: [id number] DocumentID: [id number] Dictated Date: 03/18/2019 13:48:05 Nursing Clerk Date: 03/18/2019 14:12:39 Dictated By: ENDY HUANG MD [facility]
[2019-03-18] MEDS: PIPERACILLIN/TAZOBACTAM (BULK) 4.5 GM in NS (IVPB) 100 ML IV SCH ×2 (15:09→23:46)
[2019-03-18] MEDS: ACETAMINOPHEN 325 MG TABLET PO PRN (17:08)
[2019-03-18] MEDS ORDERED: ATROPINE INJECTION 1 MG/10 ML SYR (ABBOTT) ONE (17:10)
--- NOTE | 2019-03-18 17:11 | NUR ---
Pt nauseated at this time, while trying to throw up, pt vagaled into the 20's. Multiple RN's responded with atropine, crash cart and stood at pt side monitoring pt, pt heart rate returned to the lower 100's to 120's within a couple seconds. Pt vagaled again into the 30's and immediatly returned back into the previous HR in the 100's. Dr. Branham called with no answer, Dr. Hill informed and Dr. Meredith informed. Pt states she feels much better after she threw up. Pt made NPO again at this time.
[2019-03-18] MEDS: KETOROLAC 30 MG/ML VIAL IV SCH (20:34)
[2019-03-19] VITALS (25 sets, daily range): BP systolic 92–137; BP diastolic 53–90
[2019-03-19] MEDS: KETOROLAC 30 MG/ML VIAL IV SCH ×3 (01:28→13:28)
[2019-03-19] MEDS: LACTATED RINGERS 1,000 ML IV SCH ×5 (03:34→23:42)
[2019-03-19 04:07] LABS: BASOPHILS % (AUTO) 0 % (0-10); EOSINOPHILS % (AUTO) 0 % (0-10); HEMATOCRIT 26 % (35-52); HEMOGLOBIN 8.5 G/DL (11.5-16.0); LYMPHOCYTES # (AUTO) 1.1 X 10^3 (1.0-4.0); LYMPHOCYTES % (AUTO) 8 % (12-44); MEAN CORPUSCULAR HEMOGLOBIN 30 PG (25-34); MEAN CORPUSCULAR HGB CONC 33 G/DL (32-36); MEAN CORPUSCULAR VOLUME 90 FL (80-99); MEAN PLATELET VOLUME 10.5 FL (7.4-10.4); MONOCYTES # (AUTO) 0.8 X 10^3 (0.0-1.0); MONOCYTES % (AUTO) 5 % (0-12); NEUTROPHILS % (AUTO) 87 % (42-75); PLATELET COUNT 212 10^3/uL (130-400); RED CELL DISTRIBUTION WIDTH 12.4 % (10.0-14.5); WHITE BLOOD COUNT 14.9 10^3/uL (4.3-11.0)
[2019-03-19 04:28] LABS: BUN/CREATININE RATIO 10; CALCIUM 7.7 MG/DL (8.5-10.1); CARBON DIOXIDE 20 MMOL/L (21-32); CHLORIDE 108 MMOL/L (98-107); GFR ESTIMATED > 60; GLUCOSE 111 MG/DL (70-105); MAGNESIUM 1.3 MG/DL (1.8-2.4); PHOSPHORUS 1.3 MG/DL (2.3-4.7); POTASSIUM 2.8 MMOL/L (3.6-5.0); SODIUM 137 MMOL/L (135-145)
[2019-03-19] MEDS: CATHETER FLUSH 10 ML SYR IV SCH ×3 (04:50→19:44)
[2019-03-19] MEDS: MAGNESIUM 1 GM/100 ML IVPB 100 ML IV SCH ×5 (04:50→08:21)
[2019-03-19] MEDS: POTASSIUM CL 10MEQ/50ML IVPB 50 ML IV SCH ×6 (04:50→12:27)
[2019-03-19] MEDS: KCL 20 MEQ TAB (K-DUR) PO SCH (04:51)
[2019-03-19] MEDS ORDERED: POTASSIUM PHOSPHATE INJ 30 MM in NS (IVPB) 250 ML IV ONE (05:15)
--- NOTE | 2019-03-19 05:22 | Pulmonary Progress Note ---
Subjective Time Seen by a Provider: 07:23 Subjective/Events-last exam PT had episode of vasovagal yesterday while vomiting. Her HR went down into 30' s . Sepsis Event Evaluation Height, Weight, BMI Height: 5'4.00" Weight: 223lbs. 0.0oz. 101.763991sg; 38.3 BMI Method:Stated Focused Exam Lactate Level 03/17/19 22:50: Lactic Acid Level 0.94 03/18/19 08:55: Lactic Acid Level 1.41 Exam Exam Vital Signs Date Time Temp Pulse Resp B/P (MAP) Pulse Ox O2 Delivery O2 Flow Rate FiO2 03/19/19 02:00 104 29 109/63 (78) 94 Room Air 03/19/19 01:15 99.1 03/19/19 01:00 97 03/19/19 01:00 97 28 108/53 (71) 99 Room Air 03/19/19 00:00 91 19 92/55 (67) 96 Room Air 03/19/19 00:00 Room Air 03/18/19 23:00 92 22 95/62 (73) Room Air 03/18/19 22:00 96 25 99/56 (70) 94 Room Air 03/18/19 21:30 98.7 93 Room Air 03/18/19 21:00 105 25 91/50 (64) Room Air 03/18/19 20:00 106 29 102/62 (75) Room Air 03/18/19 20:00 Room Air 03/18/19 19:41 98.6 105 24 108/57 (74) 97 Room Air 03/18/19 19:00 113 33 90/44 (59) Room Air 03/18/19 19:00 113 03/18/19 18:00 113 19 102/58 (73) 95 Room Air 03/18/19 17:58 101.0 03/18/19 17:08 100.1 03/18/19 17:00 121 14 110/93 (99) Room Air 03/18/19 16:00 102 29 119/88 (98) 98 Room Air 03/18/19 15:00 109 23 112/43 (66) Room Air 03/18/19 14:10 100.4 03/18/19 14:00 123 27 123/52 (75) 97 Room Air 03/18/19 13:29 101.0 03/18/19 13:00 120 17 111/57 (75) 99 Room Air 03/18/19 12:59 115 03/18/19 12:45 100.5 03/18/19 12:00 121 28 93/46 (62) 96 Room Air 03/18/19 11:00 105 22 92/50 (64) 94 Room Air 03/18/19 10:30 126 20 107/56 (73) 99 Room Air 03/18/19 10:15 122 17 103/53 (70) 96 Room Air 03/18/19 10:00 117 16 112/57 (75) 95 Room Air 03/18/19 09:46 99.2 03/18/19 09:45 121 12 115/54 (74) 95 Room Air 03/18/19 09:30 121 19 96/66 (76) 95 Room Air 03/18/19 09:30 123 03/18/19 09:07 99.2 110 03/18/19 08:59 101.4 120 22 128/76 (93) 99 Room Air 03/18/19 08:38 101.4 03/18/19 07:59 101.4 03/18/19 07:50 Room Air I & O 03/19/19 07:00 Intake Total 1340 ml Output Total 600 ml Balance 740 ml Height & Weight Height: 5'4.00" Weight: 223lbs. 0.0oz. 101.340486sr; 38.3 BMI Method:Stated General Appearance: Anxious, Mild Distress HEENT: PERRL/EOMI, Normal ENT Inspection, Pharynx Normal Neck: Full Range of Motion, Normal Inspection, Non Tender, Supple Respiratory: Chest Non Tender, Lungs Clear, Normal Breath Sounds, No Accessory Muscle Use, No Respiratory Distress Cardiovascular: Regular Rate, Rhythm, No Edema, No Gallop, No JVD, No Murmur, Normal Peripheral Pulses Capillary Refill: Less Than 3 Seconds Gastrointestinal: No soft, No no organomegaly, No no pulsatile mass, No guarding; tenderness, other (decreased bowel sounds) Extremity: Normal Capillary Refill, Normal Inspection, No Pedal Edema Neurologic/Psychiatric: Alert, Oriented x3 Skin: Normal Color, Warm/Dry Lymphatic: No Adenopathy Results Lab Laboratory Tests 03/17/19 22:50 03/18/19 05:25 03/18/19 07:15 4/19/19 03:50 Assessment/Plan Assessment/Plan Sepsis secondary to UTI/pylonephritis vs intraabdominal - -US abdomen- reviewed -CT scan reviewed with Dr. Costa -Will cultures are pending -Dr. Meredith is also following Episode of bradycardia associated with vomiting - vasovagal -Last episode was yesterday afternoon -IVF Abdominal pain with Abscess VS other -Dr. Costa consulted Right adnexal mass -Dr. Meredith following UTI Anemia -Monitor Bilateral ureteral stone - nonobstructing -Urology is following Metabolic acidosis -IVF -Monitor Miscarriage was 03/04 -Dr. Meredith following CHARLY OLIVER DO Mar 19, 2019 05:22
[2019-03-19] MEDS: ONDANSETRON 4 MG/2 ML (SDV) Z0FRAN IV PRN ×3 (05:56→23:48)
[2019-03-19] MEDS: ACETAMINOPHEN 325 MG TABLET PO PRN ×2 (06:04→19:58)
[2019-03-19] MEDS: PIPERACILLIN/TAZOBACTAM (BULK) 4.5 GM in NS (IVPB) 100 ML IV SCH ×3 (08:12→23:42)
--- NOTE | 2019-03-19 10:00 | Progress Note-Urology ---
Progress Note-Urology Progress Notes/Assess & Plan Progress/Assessment & Plan AFEBRILE. FEELS AND LOOKS MUCH BETTER. WBCS DOWN, BUT H&H AND K WELL.. DR SUE AWARE. PLAN SAME FOR STONES Final Diagnosis SEPSIS AND BILATERAL NON OBSTRUCTING URETERAL STONES ENDY HUANG MD Mar 19, 2019 10:00
--- NOTE | 2019-03-19 10:06 | Diagnostic Imaging Report ---
Indication: Dyspnea Frontal chest obtained at 329 hours a.m. Heart is mildly enlarged. There is mild central vascular congestion. There is no focal infiltrate or pneumothorax or pleural fluid. Impression: Mild cardiomegaly and central vascular congestion. No focal consolidation or pneumothorax or pleural fluid. Dictated by: Dictated on workstation # [id number]
--- NOTE | 2019-03-19 11:52 | Progress Note-Hospitalist ---
Subjective HPI/CC On Admission Date Seen by Provider: Mar 19, 2019 Time Seen by Provider: 10:30 CC: Severe abdominal pain with fever and tachycardia HPI: This is a 38-year-old white female who was transferred from [facility] due to acute pyelonephritis with fever of 101 but since she has had a recent procedure as I understood by Dr. Meredith some sort of uterine procedure I requested a CT scan and that was done revealing bilateral kidney stones in addition to a very large right deep pelvic mass that was a new finding per CT scan. She had suffered a miscarriage 2 weeks ago did not require a procedure as originally thought placed on methotrexate for medical removal of the miscarriage and her quantitative hCG was monitored by Dr. Meredith. Upon evaluation of the CT scan and considering her tachycardia and continued fever and 1 dose of Rocephin that was given early this morning in the ER she was placed on double coverage of Zosyn and Levaquin and Dr. Branham was consulted who gave her a fluid bolus and transferred up to the ICU for severe sepsis in addition to Dr. Edmond was consulted for urgent need of surgery which will be completed today to remove the mass in addition to for kidney stones with mild hydronephrosis. Currently she is just fatigued and having severe right lower quadrant abdominal pain with rebound but improved with Dilaudid. I appreciate all consultants help on this very complex case. Subjective/Events-last exam Patient doing much better than yesterday Reviewed labs Conferred with urology Antibiotics maintain Appreciate all consultants Bradycardia after vomiting spell yesterday. Checked meds and labs Review of Systems General: Fatigue Gastrointestinal: Abdominal Pain Focused Exam Lactate Level 03/17/19 22:50: Lactic Acid Level 0.94 03/18/19 08:55: Lactic Acid Level 1.41 Objective Exam Vital Signs Vital Signs Date Time Temp Pulse Resp B/P (MAP) Pulse Ox O2 Delivery O2 Flow Rate FiO2 03/19/19 12:29 98.4 03/19/19 11:00 109 31 118/54 (75) 96 Room Air Capillary Refill : Less Than 3 Seconds General Appearance: No Apparent Distress, WD/WN, Anxious HEENT: PERRL/EOMI, Normal ENT Inspection, Pharynx Normal Neck: Full Range of Motion, Normal Inspection, Non Tender, Supple Respiratory: Chest Non Tender, Lungs Clear, Normal Breath Sounds, No Accessory Muscle Use, No Respiratory Distress Cardiovascular: Regular Rate, Rhythm, No Edema, No Gallop, No JVD, No Murmur, Normal Peripheral Pulses Gastrointestinal: Abnormal Bowel Sounds, Distended, Guarding, Mass, Rebound, Tenderness Back: Normal Inspection, No CVA Tenderness, No Vertebral Tenderness Extremity: Normal Capillary Refill, Normal Inspection, No Pedal Edema Neurologic/Psychiatric: Alert, Oriented x3 Skin: Normal Color, Warm/Dry Lymphatic: No Adenopathy Results/Procedures Lab Laboratory Tests 03/19/19 03:50 Patient resulted labs reviewed. Assessment/Plan Assessment and Plan Assess & Plan/Chief Complaint (1) Severe sepsis s/p Status: Acute (2) Acute abdomen- improved Status: Acute (3) Abdominal or pelvic swelling, mass, or lump, right lower quadrant Status: Acute (4) Leukocytosis Status: Acute (5) Tachycardia Status: Acute (6) Miscarried within last 12 months Status: Acute (7) Rebound abdominal tenderness Status: Acute (8) Acute pyelonephritis Status: Acute (9) Nausea and vomiting in adult Status: Acute (10) Acute right flank pain Status: Acute (11) Metabolic acidosis Status: Acute (12) Kidney stones Status: Acute (13) Hydronephrosis Status: Acute Qualifiers: Hydronephrosis type: with renal calculous obstruction Qualified Codes: N13.2 - Hydronephrosis with renal and ureteral calculous obstruction 14. Anemia Plan: Monitor labs Monitor hgb Kidney stones per Dr Valero Replace potassium Critical Care Critically Ill Patient Diagnosis/Problems Diagnosis/Problems (1) Severe sepsis Status: Resolved Resolution Date/Time: 03/19/19 @ 12:44 (2) Acute abdomen Status: Resolved Resolution Date/Time: 03/19/19 @ 12:44 (3) Abdominal or pelvic swelling, mass, or lump, right lower quadrant Status: Acute (4) Leukocytosis Status: Acute Qualifiers: Leukocytosis type: leukemoid reaction Qualified Codes: D72.823 - Leukemoid reaction (5) Tachycardia Status: Resolved Resolution Date/Time: 03/19/19 @ 12:44 (6) Miscarried within last 12 months Status: Acute (7) Rebound abdominal tenderness Status: Resolved Resolution Date/Time: 03/19/19 @ 12:44 (8) Acute pyelonephritis Status: Acute (9) Nausea and vomiting in adult Status: Acute (10) Acute right flank pain Status: Resolved Resolution Date/Time: 03/19/19 @ 12:44 (11) Metabolic acidosis Status: Resolved Resolution Date/Time: 03/19/19 @ 12:44 (12) Kidney stones Status: Acute (13) Hydronephrosis Status: Acute Qualifiers: Hydronephrosis type: with renal calculous obstruction Qualified Codes: N13.2 - Hydronephrosis with renal and ureteral calculous obstruction (14) Hypokalemia Status: Acute (15) Anemia Status: Acute Qualifiers: Anemia type: unspecified type Qualified Codes: D64.9 - Anemia, unspecified Clinical Quality Measures DVT/VTE Risk/Contraindication: Risk Factor Score Per Nursin RFS Level Per Nursing on Admit: 2=Moderate TYLOR SUE DO Mar 19, 2019 11:51
--- NOTE | 2019-03-19 11:53 | Progress Note ---
Subjective Time Seen by a Provider: 09:40 Subjective/Events-last exam Pt seen and examined, she looks much better than yesterday. States he abdominal pain is under control and she is tolerating a diet. Review of Systems General: Chills, Night Sweats Pulmonary: No Dyspnea, No Cough Cardiovascular: No: Chest Pain, Palpitations Gastrointestinal: Abdominal Pain; No: Nausea, Vomiting Focused Exam Lactate Level 03/17/19 22:50: Lactic Acid Level 0.94 03/18/19 08:55: Lactic Acid Level 1.41 Objective Exam Vital Signs Date Time Temp Pulse Resp B/P (MAP) Pulse Ox O2 Delivery O2 Flow Rate FiO2 03/19/19 11:00 109 31 118/54 (75) 96 Room Air 03/19/19 10:00 92 15 117/77 (90) 96 Room Air 03/19/19 09:00 90 21 118/74 (89) 92 Room Air 03/19/19 08:00 Room Air 03/19/19 08:00 96 12 101/58 (72) 95 Room Air 03/19/19 07:47 98.1 03/19/19 07:12 104 03/19/19 07:00 102 93/68 (76) Room Air 03/19/19 06:00 101 99/60 (73) 97 Room Air 03/19/19 05:00 90 108/64 (79) Room Air 03/19/19 04:00 Room Air 03/19/19 04:00 98 35 110/67 (81) Room Air 03/19/19 03:00 100 22 95/53 (67) 94 Room Air 03/19/19 02:00 104 29 109/63 (78) 94 Room Air 03/19/19 01:15 99.1 03/19/19 01:00 97 03/19/19 01:00 97 28 108/53 (71) 99 Room Air 03/19/19 00:00 91 19 92/55 (67) 96 Room Air 03/19/19 00:00 Room Air 03/18/19 23:00 92 22 95/62 (73) Room Air 03/18/19 22:00 96 25 99/56 (70) 94 Room Air 03/18/19 21:30 98.7 93 Room Air 03/18/19 21:00 105 25 91/50 (64) Room Air 03/18/19 20:00 106 29 102/62 (75) Room Air 03/18/19 20:00 Room Air 03/18/19 19:41 98.6 105 24 108/57 (74) 97 Room Air 03/18/19 19:00 113 33 90/44 (59) Room Air 03/18/19 19:00 113 03/18/19 18:00 113 19 102/58 (73) 95 Room Air 03/18/19 17:58 101.0 03/18/19 17:08 100.1 03/18/19 17:00 121 14 110/93 (99) Room Air 03/18/19 16:00 102 29 119/88 (98) 98 Room Air 03/18/19 15:00 109 23 112/43 (66) Room Air 03/18/19 14:10 100.4 03/18/19 14:00 123 27 123/52 (75) 97 Room Air 03/18/19 13:29 101.0 03/18/19 13:00 120 17 111/57 (75) 99 Room Air 03/18/19 12:59 115 03/18/19 12:45 100.5 03/18/19 12:00 121 28 93/46 (62) 96 Room Air I & O 03/19/19 07:00 Intake Total 1540 ml Output Total 600 ml Balance 940 ml Capillary Refill : Less Than 3 Seconds General Appearance: Anxious, Mild Distress HEENT: PERRL/EOMI Neck: Full Range of Motion, Non Tender, Supple Respiratory: Chest Non Tender, Lungs Clear, Normal Breath Sounds, No Accessory Muscle Use, No Respiratory Distress Cardiovascular: Regular Rate, Rhythm, No Edema, No Murmur Gastrointestinal: soft, no organomegaly, no pulsatile mass, tenderness (RLQ), other (decreased bowel sounds) Extremity: Normal Capillary Refill, Normal Inspection, No Pedal Edema Neurologic/Psychiatric: Alert, Oriented x3 Skin: Normal Color, Warm/Dry Results Lab Laboratory Tests 03/19/19 03:50: White Blood Count 14.9H, Red Blood Count 2.88L, Hemoglobin 8.5#L, Hematocrit 26L , Mean Corpuscular Volume 90, Mean Corpuscular Hemoglobin 30, Mean Corpuscular Hemoglobin Concent 33, Red Cell Distribution Width 12.4, Platelet Count 212, Mean Platelet Volume 10.5H, Neutrophils (%) (Auto) 87H, Lymphocytes (%) (Auto) 8L, Monocytes (%) (Auto) 5, Eosinophils (%) (Auto) 0, Basophils (%) (Auto) 0, Neutrophils # (Auto) 13.0H, Lymphocytes # (Auto) 1.1, Monocytes # (Auto) 0.8, Eosinophils # (Auto) 0.0, Basophils # (Auto) 0.0, Sodium Level 137, Potassium Level 2.8L, Chloride Level 108H, Carbon Dioxide Level 20L, Anion Gap 9, Blood Urea Nitrogen 6L, Creatinine 0.60, Estimat Glomerular Filtration Rate > 60, BUN/ Creatinine Ratio 10, Glucose Level 111H, Calcium Level 7.7L, Phosphorus Level 1.3L, Magnesium Level 1.3L Assessment/Plan Assessment/Plan Assessment/Plan RLQ pain appears to be due to Hemorrhagic Cyst 1. pyelonephritis 2. Nephrolithiasis 3. Right adnexal mass 4. Recent miscarriage Transvaginal US was done good blood flow to ovary; there is a complex adnexal cyst with no free fluid in the pelvis. Pt looks much better today and I will sign off and let [employer] direct any surgical care, thank you for this consult. Clinical Quality Measures DVT/VTE Risk/Contraindication: Risk Factor Score Per Nursin RFS Level Per Nursing on Admit: 2=Moderate NATALIYA MENG DO Mar 19, 2019 11:53
--- NOTE | 2019-03-19 13:41 | NUR ---
PT C/O CP W/ INHALATION, DR REYES NOTIFIED. NEW ORDER RECEIVED FOR CTA CHEST.
--- NOTE | 2019-03-19 13:47 | Progress Note (SOAP) ---
Subjective Date Seen by a Provider: Mar 19, 2019 Time Seen by a Provider: 13:30 Subjective/Events-last exam Had an episode of emesis with a vagal reaction following yesterday. So she was made NPO. however, we are not planning to proceed with surgery. Patient is much better today and I called early to advance her diet (plan was to advance yesterday but she was afraid). She does have kidney stones and may be in the process of passing these so fluid was increased for this reason. However, this can be reduced as she takes in oral hydration. Can advance to oral pain medications and antiinflammatories as she tolerates diet. We will not proceed with surgery as the cystic structure is likely incidental (ovulatory) and not the cause of the pain (was not present 2 weeks ago and there is no evidence of infection nor torsion). HCG is decreasing. Plan initially was to repeat this 1 -2 weeks after she had stopped bleeding. This was drawn a little earlier than planned so would do another in a week or so. She can follow up with me in the office in the next few weeks to have this done and to discuss further pregnancies/contraception, etc. She is doing much better today and the pain is much better. Tolerating a diet. WBC is improving. Hgb has decreased but suspect this is partly dilutional. Afebrile since 1800 yesterday. Will decrease fluids as she takes more in. Continue to strain urine. Can follow up for ESWL as an outpatient with Dr. Valero but will need to let him know if that is the plan. He said he could do this next week if needed. Laboratory Tests Test 03/19/19 03:50 Range/Units White Blood Count 14.9 H 4.3-11.0 10^3/uL Red Blood Count 2.88 L 4.35-5.85 10^6/uL Hemoglobin 8.5 #L 11.5-16.0 G/DL Hematocrit 26 L 35-52 % Mean Corpuscular Volume 90 80-99 FL Mean Corpuscular Hemoglobin 30 25-34 PG Mean Corpuscular Hemoglobin Concent 33 32-36 G/DL Red Cell Distribution Width 12.4 10.0-14.5 % Platelet Count 212 130-400 10^3/uL Mean Platelet Volume 10.5 H 7.4-10.4 FL Neutrophils (%) (Auto) 87 H 42-75 % Lymphocytes (%) (Auto) 8 L 12-44 % Monocytes (%) (Auto) 5 0-12 % Eosinophils (%) (Auto) 0 0-10 % Basophils (%) (Auto) 0 0-10 % Neutrophils # (Auto) 13.0 H 1.8-7.8 X 10^3 Lymphocytes # (Auto) 1.1 1.0-4.0 X 10^3 Monocytes # (Auto) 0.8 0.0-1.0 X 10^3 Eosinophils # (Auto) 0.0 0.0-0.3 10^3/uL Basophils # (Auto) 0.0 0.0-0.1 10^3/uL Sodium Level 137 135-145 MMOL/L Potassium Level 2.8 L 3.6-5.0 MMOL/L Chloride Level 108 H 98-107 MMOL/L Carbon Dioxide Level 20 L 21-32 MMOL/L Anion Gap 9 5-14 MMOL/L Blood Urea Nitrogen 6 L 7-18 MG/DL Creatinine 0.60 0.60-1.30 MG/DL Estimat Glomerular Filtration Rate > 60 BUN/Creatinine Ratio 10 Glucose Level 111 H 70-105 MG/DL Calcium Level 7.7 L 8.5-10.1 MG/DL Phosphorus Level 1.3 L 2.3-4.7 MG/DL Magnesium Level 1.3 L 1.8-2.4 MG/DL 03/19/19 03/19/19 03/19/19 03/19/19 02:00 03:00 04:00 04:00 Pulse 104 100 98 Resp 29 22 35 B/P (MAP) 109/63 (78) 95/53 (67) 110/67 (81) Pulse Ox 94 94 O2 Delivery Room Air Room Air Room Air Room Air 03/19/19 03/19/19 03/19/19 03/19/19 05:00 06:00 07:00 07:12 Pulse 90 101 102 104 B/P (MAP) 108/64 (79) 99/60 (73) 93/68 (76) Pulse Ox 97 O2 Delivery Room Air Room Air Room Air 03/19/19 03/19/19 03/19/19 03/19/19 07:47 08:00 08:00 09:00 Temp 98.1 Pulse 96 90 Resp 12 21 B/P (MAP) 101/58 (72) 118/74 (89) Pulse Ox 95 92 O2 Delivery Room Air Room Air Room Air 03/19/19 03/19/19 03/19/19 03/19/19 10:00 11:00 11:53 12:00 Temp 98.0 Pulse 92 109 96 Resp 15 31 17 B/P (MAP) 117/77 (90) 118/54 (75) 116/60 (78) Pulse Ox 96 96 96 O2 Delivery Room Air Room Air Room Air 03/19/19 03/19/19 12:29 13:00 Temp 98.4 Pulse 100 Resp 23 B/P (MAP) 115/80 (92) Pulse Ox 96 O2 Delivery Room Air 03/19/19 00:00 Intake Total 1220 ml Output Total 300 ml Balance 920 ml 1. pyelonephritis - improving 2. nephrolithiasis - continue IVF and antiinflammatories, narcotics and antiemetic as needed only. Follow up for ESWL as necessary. 3. adnexal cyst - pain improving. no treatment necessary 4. Recent miscarriage - repeat HCG in 1-2 weeks I am not on service so I will sign off. She can follow up with me after discharge. however, I can be available by cell phone if needed. At this point , nothing surgical is needed. Focused Exam Lactate Level 03/17/19 22:50: Lactic Acid Level 0.94 03/18/19 08:55: Lactic Acid Level 1.41 Respiratory: Lungs Clear, Normal Breath Sounds Cardiovascular: Regular Rate, Rhythm, No Edema Objective Exam Vital Signs Date Time Temp Pulse Resp B/P (MAP) Pulse Ox O2 Delivery O2 Flow Rate FiO2 03/19/19 13:00 100 23 115/80 (92) 96 Room Air 03/19/19 12:29 98.4 03/19/19 12:00 96 17 116/60 (78) 96 Room Air 03/19/19 11:53 98.0 03/19/19 11:00 109 31 118/54 (75) 96 Room Air 03/19/19 10:00 92 15 117/77 (90) 96 Room Air 03/19/19 09:00 90 21 118/74 (89) 92 Room Air 03/19/19 08:00 Room Air 03/19/19 08:00 96 12 101/58 (72) 95 Room Air 03/19/19 07:47 98.1 03/19/19 07:12 104 03/19/19 07:00 102 93/68 (76) Room Air 03/19/19 06:00 101 99/60 (73) 97 Room Air 03/19/19 05:00 90 108/64 (79) Room Air 03/19/19 04:00 Room Air 03/19/19 04:00 98 35 110/67 (81) Room Air 03/19/19 03:00 100 22 95/53 (67) 94 Room Air 03/19/19 02:00 104 29 109/63 (78) 94 Room Air 03/19/19 01:15 99.1 03/19/19 01:00 97 03/19/19 01:00 97 28 108/53 (71) 99 Room Air 03/19/19 00:00 91 19 92/55 (67) 96 Room Air 03/19/19 00:00 Room Air 03/18/19 23:00 92 22 95/62 (73) Room Air 03/18/19 22:00 96 25 99/56 (70) 94 Room Air 03/18/19 21:30 98.7 93 Room Air 03/18/19 21:00 105 25 91/50 (64) Room Air 03/18/19 20:00 106 29 102/62 (75) Room Air 03/18/19 20:00 Room Air 03/18/19 19:41 98.6 105 24 108/57 (74) 97 Room Air 03/18/19 19:00 113 33 90/44 (59) Room Air 03/18/19 19:00 113 03/18/19 18:00 113 19 102/58 (73) 95 Room Air 03/18/19 17:58 101.0 03/18/19 17:08 100.1 03/18/19 17:00 121 14 110/93 (99) Room Air 03/18/19 16:00 102 29 119/88 (98) 98 Room Air 03/18/19 15:00 109 23 112/43 (66) Room Air 03/18/19 14:10 100.4 03/18/19 14:00 123 27 123/52 (75) 97 Room Air I & O 03/19/19 07:00 Intake Total 1540 ml Output Total 600 ml Balance 940 ml Capillary Refill : Less Than 3 Seconds General Appearance: No Apparent Distress Results Lab Laboratory Tests 03/19/19 03:50: White Blood Count 14.9H, Red Blood Count 2.88L, Hemoglobin 8.5#L, Hematocrit 26L , Mean Corpuscular Volume 90, Mean Corpuscular Hemoglobin 30, Mean Corpuscular Hemoglobin Concent 33, Red Cell Distribution Width 12.4, Platelet Count 212, Mean Platelet Volume 10.5H, Neutrophils (%) (Auto) 87H, Lymphocytes (%) (Auto) 8L, Monocytes (%) (Auto) 5, Eosinophils (%) (Auto) 0, Basophils (%) (Auto) 0, Neutrophils # (Auto) 13.0H, Lymphocytes # (Auto) 1.1, Monocytes # (Auto) 0.8, Eosinophils # (Auto) 0.0, Basophils # (Auto) 0.0, Sodium Level 137, Potassium Level 2.8L, Chloride Level 108H, Carbon Dioxide Level 20L, Anion Gap 9, Blood Urea Nitrogen 6L, Creatinine 0.60, Estimat Glomerular Filtration Rate > 60, BUN/ Creatinine Ratio 10, Glucose Level 111H, Calcium Level 7.7L, Phosphorus Level 1.3L, Magnesium Level 1.3L Assessment/Plan Assessment/Plan Assess & Plan/Chief Complaint 1. pyelonephritis 2. Nephrolithiasis 3. Right adnexal mass 4. Recent miscarriage Transvaginal US was done. There is a complex adnexal cyst with no free fluid in the pelvis. This is suggestive of a hemorrhagic cyst. This may have been ovulatory (timing is consistent). She has completed the miscarriage. HCG is 92. There is a small amount of tissue in the uterus but not consistent with retained products of conception. There is no evidence of ectopic . She has no risk factors for tuboovarian abscess and the cystic lesion is not suggestive or an abscess. I suspect this finding is incidental. Fever and leukocytosis are consistent with pyelonephritis. She has received Rocephin and now Zosyn and Levaquin. She is receiving Toradol and Fentanyl. At this point will defer surgery to treatment of kidney stones if necessary. Will manage the ovarian cyst conservatively but if there is no improvement in symptoms and labs in 24-48 hours, then may consider diagnostic laparoscopy and possible RSO. Clinical Quality Measures DVT/VTE Risk/Contraindication: Risk Factor Score Per Nursin RFS Level Per Nursing on Admit: 2=Moderate JANE SUTTON DO Mar 19, 2019 13:47
[2019-03-19] MEDS ORDERED: IOHEXOL 350 MG/ML 150 ML (OMNIPAQUE 350) VIAL IV ONE (14:15)
[2019-03-19] MEDS ORDERED: CATHETER FLUSH 10 ML SYR IV PRN (14:15)
[2019-03-19] MEDS ORDERED: HOLD METFORMIN - RECEIVED CONTRAST 20 ML VIAL IV SCH (14:15)
--- NOTE | 2019-03-19 15:13 | Diagnostic Imaging Report ---
PROCEDURE: CT angiography of the chest with contrast. TECHNIQUE: Multiple contiguous axial images were obtained through the chest after uneventful bolus administration of intravenous contrast. 2D reconstructed CTA MIP acquisitions were also performed. Auto Exposure Controls were utilized during the CT exam to meet ALARA standards for radiation dose reduction. INDICATION: Chest pain. FINDINGS: There has been interval development of bilateral pleural effusions with basilar atelectasis. The effusions measure 13 mm in thickness. The lung bases were clear and free of effusion on the previous study from [place]. There are no pulmonary emboli. The aorta is unremarkable. IMPRESSION: There has been interval development of bilateral pleural effusions and basilar atelectasis since the previous days comparison exam. There is also some peribronchial thickening in the dependent portions of the lung bases. Differential considerations would include aspiration. Dictated by: Dictated on workstation # [id number]
[2019-03-19 16:22] LABS: BUN/CREATININE RATIO 6; CALCIUM 8.1 MG/DL (8.5-10.1); CARBON DIOXIDE 23 MMOL/L (21-32); CHLORIDE 109 MMOL/L (98-107); CREATININE SERUM 0.63 MG/DL (0.60-1.30); GFR ESTIMATED > 60; GLUCOSE 111 MG/DL (70-105); POTASSIUM 3.5 MMOL/L (3.6-5.0); SODIUM 138 MMOL/L (135-145)
[2019-03-19] MEDS: ENOXAPARIN 40 MG/0.4 ML (LOVENOX) SYR SC SCH (16:45)
[2019-03-19] MEDS: HYDROmorphone 2 MG/ML VIAL (DILAUDID) IV PRN ×2 (16:52→23:48)
[2019-03-19] MEDS: KETOROLAC 30 MG/ML VIAL IV PRN (19:58)
[2019-03-20] VITALS (14 sets, daily range): BP systolic 95–165; BP diastolic 58–93
[2019-03-20 03:36] LABS: BASOPHILS % (AUTO) 0 % (0-10); EOSINOPHILS % (AUTO) 0 % (0-10); HEMATOCRIT 26 % (35-52); HEMOGLOBIN 8.4 G/DL (11.5-16.0); LYMPHOCYTES # (AUTO) 1.3 X 10^3 (1.0-4.0); LYMPHOCYTES % (AUTO) 10 % (12-44); MEAN CORPUSCULAR HEMOGLOBIN 29 PG (25-34); MEAN CORPUSCULAR HGB CONC 33 G/DL (32-36); MEAN CORPUSCULAR VOLUME 89 FL (80-99); MEAN PLATELET VOLUME 10.6 FL (7.4-10.4); MONOCYTES # (AUTO) 0.6 X 10^3 (0.0-1.0); MONOCYTES % (AUTO) 5 % (0-12); NEUTROPHILS # (AUTO) 10.7 X 10^3 (1.8-7.8); NEUTROPHILS % (AUTO) 85 % (42-75); PLATELET COUNT 244 10^3/uL (130-400); RED CELL DISTRIBUTION WIDTH 12.5 % (10.0-14.5); WHITE BLOOD COUNT 12.7 10^3/uL (4.3-11.0)
[2019-03-20 03:55] LABS: BUN/CREATININE RATIO 7; CALCIUM 7.9 MG/DL (8.5-10.1); CARBON DIOXIDE 20 MMOL/L (21-32); CHLORIDE 109 MMOL/L (98-107); CREATININE SERUM 0.59 MG/DL (0.60-1.30); GFR ESTIMATED > 60; GLUCOSE 106 MG/DL (70-105); MAGNESIUM 1.8 MG/DL (1.8-2.4); PHOSPHORUS 1.9 MG/DL (2.3-4.7); POTASSIUM 3.4 MMOL/L (3.6-5.0); SODIUM 139 MMOL/L (135-145)
[2019-03-20] MEDS: ONDANSETRON 4 MG/2 ML (SDV) Z0FRAN IV PRN (05:54)
[2019-03-20] MEDS: KETOROLAC 30 MG/ML VIAL IV PRN (05:54)
--- NOTE | 2019-03-20 06:09 | Pulmonary Progress Note ---
Subjective Time Seen by a Provider: 08:23 Subjective/Events-last exam Pt appears to be doing better Sepsis Event Evaluation Height, Weight, BMI Height: 5'4.00" Weight: 223lbs. 0.0oz. 101.366058qk; 38.3 BMI Method:Stated Focused Exam Lactate Level 03/17/19 22:50: Lactic Acid Level 0.94 03/18/19 08:55: Lactic Acid Level 1.41 Exam Exam Vital Signs Date Time Temp Pulse Resp B/P (MAP) Pulse Ox O2 Delivery O2 Flow Rate FiO2 03/20/19 06:00 109 30 147/93 (111) Room Air 03/20/19 05:00 78 21 141/81 (101) 96 Room Air 03/20/19 04:00 102 26 165/75 (105) 94 Room Air 03/20/19 03:00 85 22 105/67 (80) 95 Room Air 03/20/19 02:00 78 18 95/79 (84) 95 Room Air 03/20/19 01:00 88 03/20/19 01:00 85 21 99/58 (72) 93 Room Air 03/20/19 00:00 107 12 125/69 (87) 91 Room Air 03/19/19 23:00 101 12 116/81 (93) 91 Room Air 03/19/19 22:00 96 15 118/69 (85) 91 Room Air 03/19/19 21:00 101 21 101/53 (69) 91 Room Air 03/19/19 20:00 108 19 131/73 (92) 93 Room Air 03/19/19 20:00 Room Air 03/19/19 19:21 98.1 105 20 116/79 (91) 94 Room Air 03/19/19 19:00 105 17 116/79 (91) 94 Room Air 03/19/19 19:00 106 03/19/19 18:00 105 21 120/88 (99) 95 Room Air 03/19/19 17:00 109 25 137/90 (106) 96 Room Air 03/19/19 16:00 105 27 132/87 (102) 96 Room Air 03/19/19 15:31 98.5 03/19/19 15:00 104 22 136/81 (99) 96 Room Air 03/19/19 14:00 105 21 121/82 (95) 96 Room Air 03/19/19 13:00 100 23 115/80 (92) 96 Room Air 03/19/19 13:00 100 03/19/19 12:29 98.4 03/19/19 12:00 96 17 116/60 (78) 96 Room Air 03/19/19 11:53 98.0 03/19/19 11:00 109 31 118/54 (75) 96 Room Air 03/19/19 10:00 92 15 117/77 (90) 96 Room Air 03/19/19 09:00 90 21 118/74 (89) 92 Room Air 03/19/19 08:00 Room Air 03/19/19 08:00 96 12 101/58 (72) 95 Room Air 03/19/19 07:47 98.1 03/19/19 07:12 104 03/19/19 07:00 102 93/68 (76) Room Air I & O 03/20/19 07:00 Intake Total 2690 ml Output Total 2550 ml Balance 140 ml Height & Weight Height: 5'4.00" Weight: 223lbs. 0.0oz. 101.781726xa; 38.3 BMI Method:Stated General Appearance: No Apparent Distress HEENT: PERRL/EOMI, Normal ENT Inspection, Pharynx Normal Neck: Full Range of Motion, Normal Inspection, Non Tender, Supple Respiratory: Lungs Clear, Normal Breath Sounds Cardiovascular: Regular Rate, Rhythm, No Edema Capillary Refill: Less Than 3 Seconds Gastrointestinal: soft, no organomegaly, no pulsatile mass, tenderness (RLQ), other (decreased bowel sounds) Extremity: Normal Capillary Refill, Normal Inspection, No Pedal Edema Neurologic/Psychiatric: Alert, Oriented x3 Skin: Normal Color, Warm/Dry Lymphatic: No Adenopathy Results Lab Laboratory Tests 03/18/19 07:15 03/19/19 03:50 03/19/19 16:00 03/20/19 03:15 Assessment/Plan Assessment/Plan Sepsis secondary to UTI/pylonephritis - -US abdomen- reviewed -CT scan reviewed with Dr. Costa -Will cultures are pending -Dr. Meredith is also following Episode of bradycardia associated with vomiting - vasovagal -IVF Abdominal pain with Abscess VS other -Dr. Costa consulted Right adnexal mass -Dr. Meredith following UTI Anemia -Monitor Bilateral ureteral stone - nonobstructing -Urology is following Hypokalemia, Hypophos -replace Metabolic acidosis -IVF -Monitor Miscarriage was 03/04 -Dr. Meredith following CHARLY OLIVER DO Mar 20, 2019 06:09
[2019-03-20] MEDS: POTASSIUM CL 10MEQ/50ML IVPB 50 ML IV SCH ×3 (06:13→09:21)
[2019-03-20] MEDS: KCL 20 MEQ TAB (K-DUR) PO SCH (06:13)
[2019-03-20] MEDS: CATHETER FLUSH 10 ML SYR IV SCH ×3 (06:13→22:34)
[2019-03-20] MEDS: MAGNESIUM 1 GM/100 ML IVPB 100 ML IV SCH (06:13)
[2019-03-20] MEDS ORDERED: POTASSIUM PHOSPHATE INJ 30 MM in NS (IVPB) 250 ML IV ONE (06:15)
[2019-03-20] MEDS: PIPERACILLIN/TAZOBACTAM (BULK) 4.5 GM in NS (IVPB) 100 ML IV SCH ×3 (07:37→22:35)
--- NOTE | 2019-03-20 07:44 | Diagnostic Imaging Report ---
INDICATION: Dyspnea. COMPARISON: 03/19/2019 FINDINGS: Single frontal radiographic view of the chest was obtained and again demonstrates moderate pulmonary vascular congestion. This does appear progressed when compared to prior exam. A few scattered alveolar opacities are also noted and may be on the basis of developing alveolar edema or infiltrate. No large effusion or pneumothorax is seen. Cardiac silhouette is stable. Bony structures show no gross acute abnormalities. IMPRESSION: 1. Findings concerning for interval progression of pulmonary vascular congestion and possible development of scattered patchy alveolar edema or infiltrate. Continued followup is recommended. Dictated by: Dictated on workstation # [id number]
[2019-03-20] MEDS: ACETAMINOPHEN 325 MG TABLET PO PRN ×4 (08:12→20:43)
[2019-03-20] MEDS ORDERED: FUROSEMIDE 40 MG/4 ML INJ (LASIX) IVP NR (09:00)
--- NOTE | 2019-03-20 09:30 | Progress Note-Hospitalist ---
Subjective HPI/CC On Admission Date Seen by Provider: Mar 20, 2019 Time Seen by Provider: 08:45 CC: Severe abdominal pain with fever and tachycardia HPI: This is a 38-year-old white female who was transferred from [facility] due to acute pyelonephritis with fever of 101 but since she has had a recent procedure as I understood by Dr. Meredith some sort of uterine procedure I requested a CT scan and that was done revealing bilateral kidney stones in addition to a very large right deep pelvic mass that was a new finding per CT scan. She had suffered a miscarriage 2 weeks ago did not require a procedure as originally thought placed on methotrexate for medical removal of the miscarriage and her quantitative hCG was monitored by Dr. Meredith. Upon evaluation of the CT scan and considering her tachycardia and continued fever and 1 dose of Rocephin that was given early this morning in the ER she was placed on double coverage of Zosyn and Levaquin and Dr. Branham was consulted who gave her a fluid bolus and transferred up to the ICU for severe sepsis in addition to Dr. Edmond was consulted for urgent need of surgery which will be completed today to remove the mass in addition to for kidney stones with mild hydronephrosis. Currently she is just fatigued and having severe right lower quadrant abdominal pain with rebound but improved with Dilaudid. I appreciate all consultants help on this very complex case. Subjective/Events-last exam Patient is having much less abdominal pain today. She complained of chest pressure and pain yesterday stat CT chest pulmonary angiogram showed no evidence of pulmonary emboli but did show pleural effusions and evidence of fluid overload. Fluids were decreased at that time but today the patient remains very dyspneic with evidence of fluid overload on chest x-ray. She has had some diarrhea overnight. Review of Systems Pulmonary: Dyspnea Cardiovascular: Edema Gastrointestinal: Diarrhea Focused Exam Lactate Level 03/17/19 22:50: Lactic Acid Level 0.94 03/18/19 08:55: Lactic Acid Level 1.41 Objective Exam Vital Signs Vital Signs Date Time Temp Pulse Resp B/P (MAP) Pulse Ox O2 Delivery O2 Flow Rate FiO2 03/20/19 09:26 97.9 03/20/19 09:02 101 12 118/68 (85) 91 Room Air Capillary Refill : Less Than 3 Seconds General Appearance: No Apparent Distress HEENT: PERRL/EOMI, Normal ENT Inspection, Pharynx Normal Neck: Full Range of Motion, Normal Inspection, Non Tender, Supple Respiratory: Lungs Clear, Normal Breath Sounds Cardiovascular: No Edema, Tachycardia Gastrointestinal: Normal Bowel Sounds, Soft, Mass, Rebound, Tenderness Back: Normal Inspection, No CVA Tenderness, No Vertebral Tenderness Extremity: Normal Capillary Refill, Normal Inspection, Pedal Edema Neurologic/Psychiatric: Alert, Oriented x3, Normal Mood/Affect Skin: Normal Color, Warm/Dry Lymphatic: No Adenopathy Results/Procedures Lab Laboratory Tests 03/19/19 16:00 03/20/19 03:15 Patient resulted labs reviewed. Imaging: Reviewed Imaging Report Assessment/Plan Assessment and Plan Assess & Plan/Chief Complaint 1. Pyelonephritis-on Zosyn 2. Nephrolithiasis 3. Fluid overload secondary to aggressive hydration 4. Pelvic mass-uncertain etiology 5. Recent miscarriage 6. Anemia 7. Chest pressure most likely secondary to number 3 Plan for IV Lasix continue antibiotics Hep-Lock IV fluids transfer to floor and increase ambulation. placed on Lovenox for DVT prophylaxis Critical Care Critically Ill Patient Clinical Quality Measures DVT/VTE Risk/Contraindication: Risk Factor Score Per Nursin RFS Level Per Nursing on Admit: 2=Moderate MASSIMO REYES MD Mar 20, 2019 09:30
[2019-03-20] MEDS: ENOXAPARIN 40 MG/0.4 ML (LOVENOX) SYR SC SCH (14:59)
[2019-03-20] MEDS: IBUPROFEN TABLET 200 MG TAB PO PRN (22:57)
[2019-03-21 03:30] VITALS: BP 117/70
[2019-03-21] MEDS: ACETAMINOPHEN 325 MG TABLET PO PRN ×2 (03:32→11:46)
[2019-03-21 03:38] LABS: BASOPHILS % (AUTO) 0 % (0-10); EOSINOPHILS # (AUTO) 0.1 10^3/uL (0.0-0.3); EOSINOPHILS % (AUTO) 0 % (0-10); HEMATOCRIT 28 % (35-52); HEMOGLOBIN 9.3 G/DL (11.5-16.0); LYMPHOCYTES # (AUTO) 1.7 X 10^3 (1.0-4.0); LYMPHOCYTES % (AUTO) 14 % (12-44); MEAN CORPUSCULAR HEMOGLOBIN 29 PG (25-34); MEAN CORPUSCULAR HGB CONC 33 G/DL (32-36); MEAN CORPUSCULAR VOLUME 88 FL (80-99); MEAN PLATELET VOLUME 10.4 FL (7.4-10.4); MONOCYTES # (AUTO) 0.8 X 10^3 (0.0-1.0); MONOCYTES % (AUTO) 6 % (0-12); NEUTROPHILS # (AUTO) 9.8 X 10^3 (1.8-7.8); NEUTROPHILS % (AUTO) 80 % (42-75); PLATELET COUNT 310 10^3/uL (130-400); RED CELL DISTRIBUTION WIDTH 12.3 % (10.0-14.5); WHITE BLOOD COUNT 12.3 10^3/uL (4.3-11.0)
[2019-03-21 03:56] LABS: CHLORIDE 106 MMOL/L (98-107); POTASSIUM 3.1 MMOL/L (3.6-5.0); SODIUM 138 MMOL/L (135-145)
[2019-03-21 03:57] LABS: BUN/CREATININE RATIO 8; CALCIUM 8.3 MG/DL (8.5-10.1); CARBON DIOXIDE 22 MMOL/L (21-32); CREATININE SERUM 0.65 MG/DL (0.60-1.30); GFR ESTIMATED > 60; GLUCOSE 99 MG/DL (70-105); MAGNESIUM 1.8 MG/DL (1.8-2.4)
[2019-03-21] MEDS: KCL 20 MEQ TAB (K-DUR) PO SCH (04:27)
--- NOTE | 2019-03-21 04:40 | NUR ---
Telephone report called to Lucia MORENO.
--- NOTE | 2019-03-21 04:45 | NUR ---
Patient transferred to room 403 at this time via wheelchair.
--- NOTE | 2019-03-21 06:10 | Pulmonary Progress Note ---
Subjective Time Seen by a Provider: 08:22 Subjective/Events-last exam No complications noted. Sepsis Event Evaluation Height, Weight, BMI Height: 5'4.00" Weight: 223lbs. 0.0oz. 101.458495ul; 38.3 BMI Method:Stated Focused Exam Lactate Level 03/18/19 08:55: Lactic Acid Level 1.41 Exam Exam Vital Signs Date Time Temp Pulse Resp B/P (MAP) Pulse Ox O2 Delivery O2 Flow Rate FiO2 03/21/19 03:30 98.6 85 18 117/70 (86) 92 Nasal Cannula 2.00 03/20/19 23:03 Nasal Cannula 2.00 03/20/19 23:02 101.1 103 22 138/78 (98) 93 Room Air 03/20/19 22:57 101.1 03/20/19 22:35 101.1 03/20/19 20:43 100.4 03/20/19 19:35 95 Room Air 03/20/19 19:30 98.3 96 20 124/68 (86) 95 Room Air 03/20/19 16:31 98.8 03/20/19 15:02 98.3 102 12 119/74 (89) 97 Room Air 03/20/19 14:00 99.4 03/20/19 13:31 Nasal Cannula 1.00 03/20/19 13:08 100.1 03/20/19 12:45 100.1 103 14 136/77 (96) 93 Nasal Cannula 1.00 03/20/19 10:55 99.0 03/20/19 10:00 100 23 97 Room Air 03/20/19 09:26 97.9 03/20/19 09:02 101 12 118/68 (85) 91 Room Air 03/20/19 08:26 Room Air 03/20/19 08:23 99.6 03/20/19 08:12 99.6 03/20/19 08:00 103 31 131/73 (92) 93 Room Air 03/20/19 07:00 106 03/20/19 07:00 98 25 114/66 (82) 91 Room Air I & O 03/21/19 07:00 Intake Total 1780 ml Output Total 4650 ml Balance -2870 ml Height & Weight Height: 5'4.00" Weight: 223lbs. 0.0oz. 101.142708eo; 38.3 BMI Method:Stated General Appearance: No Apparent Distress HEENT: PERRL/EOMI, Normal ENT Inspection, Pharynx Normal Neck: Full Range of Motion, Normal Inspection, Non Tender, Supple Respiratory: Lungs Clear, Normal Breath Sounds Cardiovascular: No Edema, Tachycardia Capillary Refill: Less Than 3 Seconds Gastrointestinal: soft, no organomegaly, no pulsatile mass, tenderness (RLQ), other (decreased bowel sounds) Extremity: Normal Capillary Refill, Normal Inspection, Pedal Edema Neurologic/Psychiatric: Alert, Oriented x3, Normal Mood/Affect Skin: Normal Color, Warm/Dry Lymphatic: No Adenopathy Results Lab Laboratory Tests 03/19/19 16:00 03/20/19 03:15 03/21/19 03:25 Assessment/Plan Assessment/Plan Sepsis secondary to UTI/pylonephritis - -US abdomen- reviewed -CT scan reviewed with Dr. Costa -Will cultures are pending -Dr. Meredith is also following Hypokalemia -replace Episode of bradycardia associated with vomiting - vasovagal -IVF Abdominal pain with Abscess VS other -Dr. Costa consulted Right adnexal mass -Dr. Meredith following UTI Anemia -Monitor Bilateral ureteral stone - nonobstructing -Urology is following Hypokalemia, Hypophos -replace Metabolic acidosis -IVF -Monitor Miscarriage was 03/04 -Dr. Meredith following CHARLY OLIVER DO Mar 21, 2019 06:10
[2019-03-21] MEDS: CATHETER FLUSH 10 ML SYR IV SCH (06:26)
[2019-03-21] MEDS: PIPERACILLIN/TAZOBACTAM (BULK) 4.5 GM in NS (IVPB) 100 ML IV SCH (06:26)
[2019-03-21 08:00] VITALS: BP 150/85
[2019-03-21] MEDS ORDERED: KCL 20 MEQ TAB (K-DUR) PO ONE (09:00)
[2019-03-21] MEDS ORDERED: AMOX-358 PO ×2 (11:25)
[2019-03-21] MEDS ORDERED: POTA-53 PO ×2 (11:25)
--- NOTE | 2019-03-21 11:32 | Discharge Summary-Hospitalist ---
Diagnosis/Chief Complaint Date of Admission Mar 18, 2019 at 01:12 Date of Discharge March 21, 2019 Discharge Date: Mar 21, 2019 Discharge Time: 13:00 Admission Diagnosis Assessment: Severe sepsis Tachycardia Acute abdomen in need of urgent surgery Right lower quadrant abdominal mass in need of urgent surgery by Dr. Costa Recent miscarriage hCG quantitative 92 Fever New kidney stones Pyelonephritis Leukocytosis worsened so added double coverage Zosyn and Levaquin antibiotics after 1 dose of Rocephin given Plan: ICU transfer line IV fluid bolus Appreciate Dr. Branham consultation Dr. Costa will take patient to surgery urgently today Zosyn and Levaquin double coverage until cultures completed Dr. Valero consulted appreciate his recommendations for kidney stones Discharge Diagnosis Sepsis Pyelonephritis right lower quadrant mass Nephrolithiasis with mild hydronephrosis Miscarriage hypokalemia Hypomagnesemia (1) Severe sepsis Status: Resolved (2) Acute abdomen Status: Resolved (3) Abdominal or pelvic swelling, mass, or lump, right lower quadrant Status: Acute (4) Leukocytosis Status: Acute (5) Tachycardia Status: Resolved (6) Miscarried within last 12 months Status: Acute (7) Rebound abdominal tenderness Status: Resolved (8) Acute pyelonephritis Status: Acute (9) Nausea and vomiting in adult Status: Acute (10) Acute right flank pain Status: Resolved (11) Metabolic acidosis Status: Resolved (12) Kidney stones Status: Acute (13) Hydronephrosis Status: Acute (14) Hypokalemia Status: Acute (15) Anemia Status: Acute Discharge Summary Procedures/Consulations CT abdomen pelvis Pelvic sonogram [facility] consult-Dr. Meredith Urology consult-Dr. Valero Surgical consult-Dr. Costa Discharge Physical Exam Allergies: Coded Allergies: No Known Drug Allergies (Unverified , 03/17/19) Vitals & I&Os Vital Signs Date Time Temp Pulse Resp B/P (MAP) Pulse Ox O2 Delivery O2 Flow Rate FiO2 03/21/19 08:00 98.4 70 16 150/85 (106) 90 Nasal Cannula 2.00 General Appearance: No Apparent Distress, WD/WN HEENT: Normal ENT Inspection Respiratory: Lungs Clear, Normal Breath Sounds, No Accessory Muscle Use, No Respiratory Distress Cardiovascular: Regular Rate, Rhythm, No Gallop, No JVD, No Murmur, Normal Peripheral Pulses Gastrointestinal: Normal Bowel Sounds, Tenderness (Bilateral lower quadrants just very slight) Extremity: Normal Capillary Refill, Normal Range of Motion, Non Tender, No Calf Tenderness Skin: Normal Color, Warm/Dry Neurologic/Psychiatric: Alert, Oriented x3, No Motor/Sensory Deficits, Normal Mood/Affect Hospital Course Was the Problem List Reviewed?: Yes Patient was admitted and placed in the ICU. It was felt that she did not require urgent surgery. She is on placed on aggressive IV antibiotics with Rocephin then Zosyn and Levaquin. She has had an intermittent fever-that at the time of discharge her white count has returned to 12.8 and she is anxious to go home. Her abdominal findings are much better she is eating normally and feels good. She has close follow-up scheduled with Dr. Valero and Dr. Meredith. Labs (last 24 hrs) Laboratory Tests 03/21/19 03:25: White Blood Count 12.3H, Red Blood Count 3.18L, Hemoglobin 9.3L, Hematocrit 28L , Mean Corpuscular Volume 88, Mean Corpuscular Hemoglobin 29, Mean Corpuscular Hemoglobin Concent 33, Red Cell Distribution Width 12.3, Platelet Count 310, Mean Platelet Volume 10.4, Neutrophils (%) (Auto) 80H, Lymphocytes (%) (Auto) 14 , Monocytes (%) (Auto) 6, Eosinophils (%) (Auto) 0, Basophils (%) (Auto) 0, Neutrophils # (Auto) 9.8H, Lymphocytes # (Auto) 1.7, Monocytes # (Auto) 0.8, Eosinophils # (Auto) 0.1, Basophils # (Auto) 0.0, Sodium Level 138, Potassium Level 3.1L, Chloride Level 106, Carbon Dioxide Level 22, Anion Gap 10, Blood Urea Nitrogen 5L, Creatinine 0.65, Estimat Glomerular Filtration Rate > 60, BUN/ Creatinine Ratio 8, Glucose Level 99, Calcium Level 8.3L, Magnesium Level 1.8 Microbiology 03/17/19 Blood Culture - Preliminary, Resulted No growth Patient resulted labs reviewed. Imaging: Reviewed Imaging Report Discussion & Recommendations Discharge Planning: >30 minutes discharge planning Discharge Home Medications: Active Scripts Active K-Tab ER (Potassium Chloride) 20 Meq Tablet.er 20 Meq PO DAILY Augmentin 875-125 Tablet (Amoxicillin/Potassium Clav) 1 Each Tablet 1 Each PO BID WITH MEALS Instructions to patient/family Please see electronic discharge instructions given to patient. Clinical Quality Measures DVT/VTE Risk/Contraindication: Risk Factor Score Per Nursin RFS Level Per Nursing on Admit: 2=Moderate Problem Qualifiers (1) Leukocytosis: Leukocytosis type: leukemoid reaction Qualified Codes: D72.823 - Leukemoid reaction (2) Hydronephrosis: Hydronephrosis type: with renal calculous obstruction Qualified Codes: N13.2 - Hydronephrosis with renal and ureteral calculous obstruction (3) Anemia: Anemia type: unspecified type Qualified Codes: D64.9 - Anemia, unspecified MASSIMO REYES MD Mar 21, 2019 11:32
[2019-03-21 12:00] VITALS: BP 144/89
[2019-03-21] MEDS ORDERED: ONDANSETRON 4 MG (ZOFRAN) ORAL DISSOLVE TAB PO PRN (13:45)
[2019-03-21 15:43] VITALS: BP 144/83
[2019-03-21] MEDS: IBUPROFEN TABLET 200 MG TAB PO PRN ×2 (15:47→23:40)
[2019-03-21] MEDS: ENOXAPARIN 40 MG/0.4 ML (LOVENOX) SYR SC SCH (16:51)
[2019-03-21] MEDS: AUGMENTIN 875 MG TAB (AMOXICILLIN/CLAVULANATE) PO SCH (16:51)
[2019-03-21 20:00] VITALS: BP 130/64
[2019-03-22 00:11] VITALS: BP 137/71
[2019-03-22 04:00] VITALS: BP 113/58
[2019-03-22] MEDS: KCL 20 MEQ TAB (K-DUR) PO SCH (04:21)
[2019-03-22 04:35] LABS: BASOPHILS % (AUTO) 0 % (0-10); EOSINOPHILS # (AUTO) 0.1 10^3/uL (0.0-0.3); EOSINOPHILS % (AUTO) 1 % (0-10); HEMATOCRIT 28 % (35-52); HEMOGLOBIN 9.3 G/DL (11.5-16.0); LYMPHOCYTES # (AUTO) 2.1 X 10^3 (1.0-4.0); LYMPHOCYTES % (AUTO) 17 % (12-44); MEAN CORPUSCULAR HEMOGLOBIN 29 PG (25-34); MEAN CORPUSCULAR HGB CONC 33 G/DL (32-36); MEAN CORPUSCULAR VOLUME 89 FL (80-99); MEAN PLATELET VOLUME 10.2 FL (7.4-10.4); MONOCYTES # (AUTO) 0.9 X 10^3 (0.0-1.0); MONOCYTES % (AUTO) 7 % (0-12); NEUTROPHILS # (AUTO) 9.7 X 10^3 (1.8-7.8); NEUTROPHILS % (AUTO) 75 % (42-75); PLATELET COUNT 344 10^3/uL (130-400); RED CELL DISTRIBUTION WIDTH 12.6 % (10.0-14.5); WHITE BLOOD COUNT 12.8 10^3/uL (4.3-11.0)
[2019-03-22 04:56] LABS: BUN/CREATININE RATIO 12; CALCIUM 8.4 MG/DL (8.5-10.1); CARBON DIOXIDE 21 MMOL/L (21-32); CHLORIDE 107 MMOL/L (98-107); CREATININE SERUM 0.65 MG/DL (0.60-1.30); GFR ESTIMATED > 60; GLUCOSE 96 MG/DL (70-105); MAGNESIUM 1.8 MG/DL (1.8-2.4); POTASSIUM 3.2 MMOL/L (3.6-5.0); SODIUM 140 MMOL/L (135-145)
[2019-03-22] MEDS: AUGMENTIN 875 MG TAB (AMOXICILLIN/CLAVULANATE) PO SCH (06:33)
[2019-03-22 07:30] VITALS: BP 131/63
--- NOTE | 2019-03-22 08:22 | Pulmonary Progress Note ---
Subjective Time Seen by a Provider: 08:18 Subjective/Events-last exam Pt feels improved. Sepsis Event Evaluation Height, Weight, BMI Height: 5'4.00" Weight: 223lbs. 0.0oz. 101.148504uq; 38.3 BMI Method:Stated Exam Exam Vital Signs Date Time Temp Pulse Resp B/P (MAP) Pulse Ox O2 Delivery O2 Flow Rate FiO2 03/22/19 07:30 98.4 91 18 131/63 (85) 95 Room Air 03/22/19 04:00 98.9 89 24 113/58 (76) 96 Room Air 03/22/19 00:11 100.1 96 22 137/71 (93) 96 Room Air 03/22/19 00:10 99.0 03/21/19 23:40 100.1 03/21/19 20:00 99.3 99 20 130/64 (86) 95 Room Air 03/21/19 20:00 Room Air 03/21/19 15:43 99.3 107 20 144/83 (103) 96 Room Air 03/21/19 12:00 99.8 93 18 144/89 (107) 95 Nasal Cannula 2.00 03/21/19 11:46 99.8 I & O 03/22/19 07:00 Intake Total 1100 ml Output Total 1600 ml Balance -500 ml Height & Weight Height: 5'4.00" Weight: 223lbs. 0.0oz. 101.148912je; 38.3 BMI Method:Stated General Appearance: No Apparent Distress, WD/WN HEENT: Normal ENT Inspection Neck: Full Range of Motion, Normal Inspection, Non Tender, Supple Respiratory: Lungs Clear, Normal Breath Sounds, No Accessory Muscle Use, No Respiratory Distress Cardiovascular: Regular Rate, Rhythm, No Gallop, No JVD, No Murmur, Normal Peripheral Pulses Capillary Refill: Less Than 3 Seconds Gastrointestinal: soft, no organomegaly, no pulsatile mass, tenderness (RLQ), other (decreased bowel sounds) Extremity: Normal Capillary Refill, Normal Range of Motion, Non Tender, No Calf Tenderness Neurologic/Psychiatric: Alert, Oriented x3, No Motor/Sensory Deficits, Normal Mood/Affect Skin: Normal Color, Warm/Dry Lymphatic: No Adenopathy Results Lab Laboratory Tests 03/21/19 03:25 03/22/19 03:45 Assessment/Plan Assessment/Plan Sepsis secondary to UTI/pylonephritis - -US abdomen- reviewed -CT scan reviewed with Dr. Costa -Will cultures are pending -Dr. Meredith is also following Hypokalemia -replace Episode of bradycardia associated with vomiting - vasovagal -IVF Abdominal pain with Abscess VS other -Dr. Costa consulted Right adnexal mass -Dr. Meredith following UTI Anemia -Monitor Bilateral ureteral stone - nonobstructing -Urology is following Hypokalemia, Hypophos -replace Metabolic acidosis -IVF -Monitor Miscarriage was 03/04 -Dr. Meredith following Pt is doing better shade from pulmonary standpoint/. I am going to sign off. Please call with any questions. CHARLY OLIVER DO Mar 22, 2019 08:22
[2019-03-22] MEDS ORDERED: KCL 20 MEQ TAB (K-DUR) PO NR (08:30)
[2019-03-22] MEDS: ACETAMINOPHEN 325 MG TABLET PO PRN (09:02)
[2019-03-22 10:56] VITALS: BP 131/63
--- NOTE | 2019-03-22 10:58 | NUR ---
DIOGENES BEARD demonstrates understanding of discharge instructions and accurately returns instructions upon questioning. Copy of Post-Discharge Instructions and Medication Discharge Instructions given to PATIENT. DIOGENES BEARD is able to manage continuing needs after discharge. Patients belongings returned to [facility]. Skin dry and intact; no breakdown noted. Patient discharged from 403-1 on at 1059. DIOGENES BEARD left floor via WHEELCHAIR, accompanied by STAFF AND SISTER.
== END 2019-03-22 11:00 | disposition home or self-care (01) | DRG 779 ==
LOC: EDUNIT# 20:45 → ER FS 20:46 → 4TH 03-18 01:12 → ICU 03-18 09:23 → 4TH 03-21 06:57
PROVIDERS: ADMIT Internal Medicine; ATTEND Internal Medicine
DX: O03.37 Sepsis following incomplete spontaneous abortion (principal); R65.20 Severe sepsis without septic shock; O03.38 Urinary tract infection following incomplete spontaneous abortion; N13.6 Pyonephrosis; O03.39 Incomplete spontaneous abortion with other complications; E87.2 Acidosis; N83.201 Unspecified ovarian cyst, right side; E87.70 Fluid overload, unspecified; D64.9 Anemia, unspecified; R00.1 Bradycardia, unspecified; E87.6 Hypokalemia; E83.39 Other disorders of phosphorus metabolism; R11.2 Nausea with vomiting, unspecified
CPT/HCPCS: 36415; 36600; 71045; 71275; 74177; 76830; 76856; 80048; 80053; 81000; 82805; 83605; 83735; 84100; 84702; 85007; 85025; 85027; 87040; 87088; 96361; 96365; 96375

== ENCOUNTER 2019-03-23 05:40 | Outpatient (CLI) | payer BC ==
[~2019-03-23] VITALS: Ht 162.6 cm; Wt 101.2 kg
[~2019-03-23 05:40] MED LIST: AMOX-358 PO; POTA-53 PO
[2019-03-24] MEDS ORDERED: TAMS0.4C98 PO (14:04)
[2019-03-24] MEDS ORDERED: NITR-65 PO (14:04)
[2019-03-24] MEDS ORDERED: HYDR-3870 PO (14:04)
== END 2019-03-23 14:48 | disposition home or self-care (01) ==
LOC: PREOP 05:40
PROVIDERS: ATTEND Urology
DX: Z01.818 Encounter for other preprocedural examination (principal)

== ENCOUNTER 2019-03-24 09:21 | Day surgery (SDC) | payer BC ==
[2019-03-24] VITALS (10 sets, daily range): BP systolic 103–138; BP diastolic 52–83
[~2019-03-24] VITALS: Ht 162.6 cm; Wt 102.1 kg
[2019-03-24] MEDS ORDERED: cefTRIAXone FOR IV USE 1,000 MG in WATER (STERILE) FOR INJECTION 10 ML IV ONE (09:30)
[2019-03-24] MEDS: LACTATED RINGERS 1,000 ML IV PRN ×2 (09:40→12:30)
[2019-03-24] MEDS ORDERED: CATHETER FLUSH 10 ML SYR IV PRN (09:45)
--- NOTE | 2019-03-24 09:58 | Progress Note-Pre Operative ---
Pre-Operative Progress Note H&P Reviewed The H&P was reviewed, patient examined and no changes noted. Date Seen by Provider: Mar 24, 2019 Time Seen by Provider: 09:57 Date H&P Reviewed: Mar 24, 2019 Time H&P Reviewed: 09:57 Pre-Operative Diagnosis: BILATERAL URETERAL STONES ENDY HUANG MD Mar 24, 2019 09:58
[2019-03-24] MEDS ORDERED: fentaNYL INJECTION 100 MCG/2 ML AMP ONE (11:54)
[2019-03-24] MEDS ORDERED: MIDAZOLAM 2 MG/2 ML (VERSED) VIAL ONE (11:54)
[2019-03-24] MEDS ORDERED: IOPAMIDOL 61% 30 ML (ISOVUE 300) VIAL IV ONE (12:30)
[2019-03-24] MEDS ORDERED: PHENYLEPHRINE 100 MCG/ML 10 ML (ANESTHESIA) SYR ONE (12:37)
--- NOTE | 2019-03-24 12:40 | Diagnostic Imaging Report ---
INDICATION: History of ureteral calculi. COMPARISON: CT chest dated 03/19/2019. FINDINGS: Two supine radiographic views of the abdomen were obtained, several small extraosseous calcifications are noted projecting over the superior portion of left psoas muscle. These, however, appear much smaller than expected given the appearance of the proximal ureteral calculus seen on prior CT dated 03/18/2019. Left-sided pelvic phleboliths are noted. No unexpected radiopaque foreign bodies are seen. Small bowel loops are nondistended. Bony structures show no gross acute abnormalities. IMPRESSION: 1. Amorphous calcifications seen projecting over the superior left psoas muscle. Correlation with interval ESWL is recommended. 2. Nonobstructive small bowel gas pattern. Dictated by: Dictated on workstation # [id number]
--- NOTE | 2019-03-24 12:48 | Progress Note-Post Operative ---
Post-Operative Progess Note Surgeon (s)/Field Staff (s) Surgeon ENDY HUANG MD Field Staff: NONE Pre-Operative Diagnosis BILATERAL URETERAL STONES Post-Operative Diagnosis SAME Procedure & Operative Findings Date of Procedure 03/24/19 Procedure Performed/Findings BILATERAL URETEROSCOPY WITH ATTEMPTED LT URETEROLITHOTRIPSY, AND LT ESWL Anesthesia Type GENERAL Estimated Blood Loss Estimated blood loss (mL): NONE Specimens/Packing Specimens Removed NONE Packing: NONE ENDY HUANG MD Mar 24, 2019 12:48
--- NOTE | 2019-03-24 12:50 | Discharge Inst-Urology ---
Discharge Inst-Urology Discharge Medications New, Converted, or Re-newed RX: RX on Chart Patient Instructions/Follow Up Plan Please make appointment to been seen in office Thursday 04/05. KUB prior to it KUB on way home Post ESWL instructions Increase oral fluids for 48 hours and then as needed. Diet and Activity as tolerated. If questions or concerns contact your physician Or seek help at emergency department. ENDY HUANG MD Mar 24, 2019 12:50
[2019-03-24] MEDS ORDERED: ONDANSETRON 4 MG/2 ML (SDV) Z0FRAN IVP PRN (13:15)
[2019-03-24] MEDS ORDERED: morphine INJ 10 MG/ML 1ML (SYR OR VIAL) IVP ONE (13:15)
[2019-03-24] MEDS ORDERED: proPOfol 200 MG/20 ML (DIPRIVAN) VIAL IV ONE (13:19)
[2019-03-24] MEDS ORDERED: DEXAMETHASONE 10 MG/ML (DECADRON) 1 ML VIAL ONE (13:20)
[2019-03-24] MEDS ORDERED: ONDANSETRON 4 MG/2 ML (SDV) Z0FRAN ONE (13:20)
[2019-03-24] MEDS ORDERED: KETOROLAC 30 MG/ML VIAL ONE (13:20)
[2019-03-24] MEDS ORDERED: FUROSEMIDE 40 MG/4 ML INJ (LASIX) ONE (13:20)
[2019-03-24] MEDS ORDERED: LIDOCAINE PF 2% 5 ML (XYLOCAINE) VIAL ONE (13:20)
[2019-03-24] MEDS ORDERED: SEVOFLURANE (ULTANE) 15 ML INHAL SOLN ONE (13:20)
--- NOTE | 2019-03-24 13:41 | Anesthesia-General Post-Op ---
General Patient Condition Mental Status/LOC: Same as Preop Cardiovascular: Satisfactory Nausea/Vomiting: Absent Respiratory: Satisfactory Pain: Controlled Complications: Absent Post Op Complications Complications None Follow Up Care/Instructions Patient Instructions None needed. Anesthesia/Patient Condition Patient Condition Patient is doing well, no complaints, stable vital signs, no apparent adverse anesthesia problems. No complications reported per nursing. CONOR NARANJO CRNA Mar 24, 2019 13:41
[2019-03-24] MEDS ORDERED: HYDR-3870 PO (14:04)
[2019-03-24] MEDS ORDERED: NITR-65 PO (14:04)
[2019-03-24] MEDS ORDERED: TAMS0.4C98 PO (14:04)
[2019-03-24] MEDS ORDERED: HYDROcodone/APAP 5 MG/325 MG (LORTAB) TAB ONE (14:05)
[2019-03-24] MEDS ORDERED: HYDROcodone/APAP 5 MG/325 MG (LORTAB) TAB PO ONE (14:15)
--- NOTE | 2019-03-24 15:29 | Diagnostic Imaging Report ---
INDICATION: Nephrolithiasis. EXAMINATION: KUB at 3:03 p.m. FINDINGS: There is a faint opacity projecting between the transverse processes of the second and third lumbar vertebra on the left side. This could be residual ureteral calculus. There are several phleboliths in the pelvis. IMPRESSION: Probable minimal residual right ureteral calculus. Dictated by: Dictated on workstation # [id number]
--- NOTE | 2019-03-24 20:13 | OPERATIVE REPORT ---
DATE OF SERVICE: 03/24/2019 PREOPERATIVE DIAGNOSIS: Bilateral ureteral stones. POSTOPERATIVE DIAGNOSIS: Bilateral ureteral stones. OPERATION PERFORMED: 1. Bilateral ureteroscopy was attempted. 2. Left ureteral lithotripsy and left ESWL. SURGEON: Rg Huang MD ANESTHESIA: General. COMPLICATIONS: None. DESCRIPTION OF PROCEDURE: Under satisfactory general anesthesia, the patient in lithotomy position in the cystoscopy suite. Genitalia are prepped and draped in the usual sterile fashion. Cystoscope was introduced under vision. Bladder essentially was normal. I went ahead and dilated both ureteral orifices and intramural portion to accommodate a 6.9 [place]ian semirigid ureteroscope. First on the right side, I went all the way up to the proximal ureter up and down. There were no stones to confirm that I injected contrast. There was no filling defect and complete emptying of the ureter on withdrawing the ureteroscope. The patient had mentioned that she thought she passed something when she was in the hospital. She just told me that just before going to surgery. Then, I performed the left ureteroscopy. I was able to go all the way up to the stone, visualized it, but I could not put to probe safely enough on the stone to break it up. I was able to disimpact the stone and discontinued further attempts, so that we do not cause any harm to the ureter. I removed the ureteroscope, reinserted the cystoscope to empty the bladder. We moved the patient to the ESWL table supine. We localized the left proximal ureteral stone and fragmented completely with 2000 shocks at kV of 4. We could not see the stone anymore. We gave the patient 40 mg of Lasix and 30 mg of Toradol IV at the end of the procedure. She tolerated the procedure and anesthesia well and was sent to recovery room in stable condition. Job ID: [id number] DocumentID: [id number] Dictated Date: 03/24/2019 12:56:22 Pediatric [facility] Date: 03/24/2019 20:12:43 Dictated By: RG HUANG MD
== END 2019-03-24 15:15 | disposition home or self-care (01) ==
LOC: SDC 09:21
PROVIDERS: ATTEND Urology
DX: N20.1 Calculus of ureter (principal); E66.9 Obesity, unspecified; Z68.38 Body mass index [BMI] 38.0-38.9, adult
CPT/HCPCS: 36415; 74018; 84702; 84703; 87081

== ENCOUNTER 2020-02-17 23:29 | Emergency (ER) | payer BC ==
[~2020-02-17] VITALS: Ht 165 cm; Wt 100.0 kg
[~2020-02-17 23:29] MED LIST changes: +HYDR-3870 PO; +NITR-65 PO; +TMSL.4C PO
--- OUTSIDE RECORDS SUMMARY | 2020-02-17 23:38 | XMS REPORT ---
Author Author Marisa Loaiza Doctor Organization [facility] Address Unknown Phone Unavailable Care Team Providers Care Cq Developer Name Role Phone Migration, Doctor Unavailable Unavailable PROBLEMS Type Condition ICD9-CM Code REL74-LD Code Onset Dates Condition S tatus SNOMED Code Problem General counseling for initiation of oth er contraceptive measures V25.02 Active 906540517790955 Problem Obesity, unspecified 278.00 Active 260400437 Problem Dietary surveillance and counseling V65.3 Active [id number] ALLERGIES No Information ENCOUNTERS Encounter Location Date Diagnosis [facility] [address] [facility] [id number] [address] [place] [address] May, [facility] [address] [place] [id number] [address] [place] [address] Mar, Major depressive disorder, s buffy episode with anxious distress 296.20 [facility] [address] [facility] [id number] [address] [place] [id number] Mar, [facility] [address] [place] [id number] [address] [place] [address] Mar, [facility] [address] [place] [id number] [address] [place] [phone] Mar, [facility] [address] [place] [id number] [address] [place] [id number] Mar, [facility] [address] [facility] [id number] [address] [place] [id number] March, [facility] [address] [place] [id number] [address] [place] [phone] Jan, IMMUNIZATIONS No Known Immunizations SOCIAL HISTORY Never Assessed REASON FOR VISIT EMR-[facility] PLAN OF CARE VITAL SIGNS MEDICATIONS Unknown Medications RESULTS No Results PROCEDURES No Known procedures INSTRUCTIONS MEDICATIONS ADMINISTERED No Known Medications MEDICAL (GENERAL) HISTORY Type Description Date Medical History Pt has 7 children. The jn gest is 8 months. She had 2 miscarriages.
--- OUTSIDE RECORDS SUMMARY | 2020-02-17 23:38 | XMS REPORT ---
Author Author Marisa MCNULTY [facility] Address [address] [place] [address] Care Team Providers Care Web Consultant Name Role Phone JESS MCNULTY Unavailable PROBLEMS Type Condition ICD9-CM Code COH48-FT Code Onset Dates Condition S tatus SNOMED Code Problem General counseling for initiation of oth er contraceptive measures V25.02 Active [id number] Problem Obesity, unspecified 278.00 Active 473926306 Problem Dietary surveillance and counseling V65.3 Active [id number] ALLERGIES No Information ENCOUNTERS Encounter Location Date Diagnosis [facility] [address] [place] [address] 13 Oct, 2019 Gastroenteritis K52.9 [facility] [address], [place] [address] 14 Aug, 2019 Sore throat J02.9 [facility] [address] [address] May, [facility] [address] [address] Mar, Major depressive disorder, single episod e with anxious distress 296.20 [facility] [id number] [place] [address] Mar, [facility] [address] [address] Mar, [facility] [address] [address] Mar, [facility] [address] [address] Mar, [facility] [address] [address] March, [facility] [address] [facility] [id number] [place] [address] Jan, IMMUNIZATIONS No Known Immunizations SOCIAL HISTORY Never Assessed REASON FOR VISIT PLAN OF CARE VITAL SIGNS MEDICATIONS No Known Medications RESULTS No Results PROCEDURES No Known procedures INSTRUCTIONS MEDICATIONS ADMINISTERED No Known Medications MEDICAL (GENERAL) HISTORY Type Description Date Medical History Pt has 7 children. The jn gest is 8 months. She had 2 miscarriages.
--- OUTSIDE RECORDS SUMMARY | 2020-02-17 23:38 | XMS REPORT | Continuity of Care Document ---
Author Organization Unknown Address Unknown Phone Unavailable Allergies Active Description Code Type Severity Reaction Onset Reported/Identified Relationship to Patient Clinical Status Yes No Known Drug Allergies [id number] Drug Allergy Unknown N/A 03/17/2019 Medications There is no data. Problems Date Dx Coded Attending Type Code Diagnosis Diagnosed By 03/05/2019 JANE SUTTON DO Ot O20.9 HEMORRHAGE IN EARLY , UNSPECIFI 03/05/2019 JANE SUTTON DO Ot Z3A.0 1 LESS THAN 8 WEEKS GESTATION OF 03/05/2019 JANE SUTTON DO Ot Z87.5 9 PERSONAL HISTORY OF COMP OF PREG, CHLDBR 03/22/2019 TYLOR SUE DO Ot D64.9 ANEMIA, UNSPECIFIED 03/22/2019 TYLOR SUE DO Ot E83.39 OTHER DISORDERS OF PHOSPHORUS METABOLISM 03/22/2019 MARCUS SUE DOI Ot E87.2 ACIDOSIS 03/22/2019 TYLOR SUE DO Ot E87.6 HYPOKALEMIA 03/22/2019 TYLOR SUE DO Ot E87.70 FLUID OVERLOAD, UNSPECIFIED 03/22/2019 LINETTE FULTON TYLOR Ot N10 ACUTE PYELONEPHRITIS 03/22/2019 MARCUS SUE DOI Ot N13.6 PYONEPHROSIS 03/22/2019 MARCUS SUE DOI Ot N83.20 1 UNSPECIFIED OVARIAN CYST, RIGHT SIDE 03/22/2019 MARCUS SUE DOI Ot N83.9 NONINFLAMMATORY DISORD OF OVARY, FALLOP 03/22/2019 TYLOR SUE DO Ot O03.37 SEPSIS FOLLOWING INCOMPLETE SPONTANEOUS 03/22/2019 MARCUS SUE DOI Ot O03.38 URINARY TRACT INFECTION FOLLOWING INCOMP 03/22/2019 TYLOR SUE DO Ot O03.39 INCOMPLETE SPONTANEOUS WITH OTH 03/22/2019 TYLOR SUE DO Ot R00.1 BRADYCARDIA, UNSPECIFIED 03/22/2019 TYLOR SUE DO Ot R11.2 NAUSEA WITH VOMITING, UNSPECIFIED 03/22/2019 TYLOR SUE DO Ot R65.20 SEVERE SEPSIS WITHOUT SEPTIC SHOCK 03/22/2019 JANE SUTTON DO Ot O20.9 HEMORRHAGE IN EARLY , UNSPECIFI 03/22/2019 JANE SUTTON DO Ot Z3A.0 1 LESS THAN 8 WEEKS GESTATION OF 03/22/2019 JANE SUTTON DO Ot Z87.5 9 PERSONAL HISTORY OF COMP OF PREG, CHLDBR 03/23/2019 ENDY HUANG MD Ot Z01.8 18 ENCOUNTER FOR OTHER PREPROCEDURAL EXAMIN 03/29/2019 ENDY HUANG MD Ot Z01.8 18 ENCOUNTER FOR OTHER PREPROCEDURAL EXAMIN 04/08/2019 ENDY HUANG MD Ot E66.9 OBESITY, UNSPECIFIED 04/08/2019 ENDY HUANG MD Ot N20.1 CALCULUS OF URETER 04/08/2019 ENDY HUANG MD Ot Z68.3 8 BODY MASS INDEX (BMI) 38.0-38.9, ADULT 04/10/2019 ENDY HUANG MD Ot E66.9 OBESITY, UNSPECIFIED 04/10/2019 ENDY HUANG MD Ot N20.1 CALCULUS OF URETER 04/10/2019 ENDY HUANG MD, Ot Z68.3 8 BODY MASS INDEX (BMI) 38.0-38.9, ADULT Procedures There is no data. Results Test Result Range TB Spot - 06/09/18 11:08 TB Spot Submitted to [facility] for testing. Varicella-Zoster V Ab, IgG - 06/09/18 11 :08 VARICELLA ZOSTER IGG <135 INDEX IMMUNE > 165 Hep B Surface Ab - 06/09/18 11:08 HEP B SURFACE AB, QUAL NON REACTIVE Complete urinalysis with reflex to cultu re - 03/17/19 22:30 Urine color determination YELLOW NRG Urine clarity determination CLOUDY NR G Urine pH measurement by test strip 8.5 5-9 Specific gravity of urine by test strip 1.010 1.016-1.022 Urine protein assay by test strip, semi-quantitative TRACE NEGATIVE Urine glucose detection by automated test strip NE GATIVE NEGATIVE Erythrocytes detection in urine sediment by light micr oscopy 3+ NEGATIVE Urine ketones detection by automated test strip NE GATIVE NEGATIVE Urine nitrite detection by test strip POSITIVE NEGATIVE Urine total bilirubin detection by test strip NEGA TIVE NEGATIVE Urine urobilinogen measurement by automated test strip (mass/volume) 0.2 mg/dL NORMAL Urine leukocyte esterase detection by dipstick 3+ NEGATIVE Automated urine sediment erythrocyte cou nt by microscopy (number/high power field) [HPF] NRG Automated urine sediment leukocyte count by microscopy (number/high power field) [HPF] NRG Bacteria detection in urine sediment by light microsco py LARGE NRG Squamous epithelial cells detection in u rine sediment by light microscopy 0-2 NRG Crystals detection in urine sediment by light microsco py NONE NRG Casts detection in urine sediment by light microscopy NONE NRG Mucus detection in urine sediment by light microscopy NONE NRG Complete urinalysis with reflex to culture YES NRG Blood CBC with ordered manual differenti al panel - 03/17/19 22:50 Blood leukocytes automated count (number/volume) 21.3 10*3/uL 4.3-11.0 Blood erythrocytes automated count (number/volume) 3.83 10*6/uL 4.35-5.85 Venous blood hemoglobin measurement (mass/volume) 11.4 g/dL 11.5-16.0 Blood hematocrit (volume fraction) 34 % 35-52 Automated erythrocyte mean corpuscular volume 88 [ foz_us] 80-99 Automated erythrocyte mean corpuscular h emoglobin (mass per erythrocyte) 30 pg 25-34 Automated erythrocyte mean corpuscular h emoglobin concentration measurement (mass/volume) 34 g/dL 32-36 Automated erythrocyte distribution width ratio 12. 1 % 10.0- 14.5 Automated blood platelet count (count/volume) 302 10*3/uL 130-400 Automated blood platelet mean volume measurement 10.2 [foz_us] 7.4-10.4 Automated blood neutrophils/100 leukocytes 90 % 42-75 Automated blood lymphocytes/100 leukocytes 5 % 12-44 Blood monocytes/100 leukocytes 3 % NRG Automated blood eosinophils/100 leukocytes 0 % 0-10 Automated blood basophils/100 leukocytes 0 % 0-10 Blood neutrophils automated count (number/volume) 19.1 10*3 1.8-7.8 Blood lymphocytes automated count (number/volume) 1.0 10*3 1.0-4.0 Blood monocytes automated count (number/volume) 1. 0 10*3 0.0-1.0 Automated eosinophil count 0.0 10*3/uL 0 .0-0.3 Automated blood basophil count (count/volume) 0.0 10*3/uL 0.0-0.1 Manual blood segmented neutrophils/100 leukocytes 84 % NRG Blood band neutrophils/100 leukocytes 8 % NRG Manual blood lymphocytes/100 leukocytes 4 % NRG Manual eosinophils/100 leukocytes in nose 0 % NRG Manual blood basophils/100 leukocytes 0 % NRG Manual blood metamyelocytes/100 leukocytes 0 % NRG Manual blood myelocytes/100 leukocytes 1 % NRG Comprehensive metabolic panel - 03/17/19 22:50 Serum or plasma sodium measurement (moles/volume) 134 mmol/L 135-145 Serum or plasma potassium measurement (moles/volume) 3.5 mmol/L 3.6-5.0 Serum or plasma chloride measurement (moles/volume) 97 mmol/L 98-107 Carbon dioxide 19 mmol/L 21-32 Serum or plasma anion gap determination (moles/volume) 18 mmol/L 5-14 Serum or plasma urea nitrogen measurement (mass/volume ) 9 mg/dL 7-18 Serum or plasma creatinine measurement (mass/volume) 0.62 mg/dL 0.60-1.30 Serum or plasma urea nitrogen/creatinine mass ratio 15 NRG Serum or plasma creatinine measurement w ith calculation of estimated glomerular filtration rate > NRG Serum or plasma glucose measurement (mass/volume) 129 mg/dL 70-105 Serum or plasma calcium measurement (mass/volume) 8.9 mg/dL 8.5-10.1 Serum or plasma total bilirubin measurement (mass/volu me) 0.7 mg/dL 0.1-1.0 Serum or plasma alkaline phosphatase nathan surement (enzymatic activity/volume) 48 U/L 40-136 Serum or plasma aspartate aminotransfera se measurement (enzymatic activity/volume) 12 U/L 5-34 Serum or plasma alanine aminotransferase measurement (enzymatic activity/volume) 18 U/L 0-55 Serum or plasma protein measurement (mass/volume) 7.5 g/dL 6.4-8.2 Serum or plasma albumin measurement (mass/volume) 4.1 g/dL 3.2-4.5 CALCIUM CORRECTED 8.8 mg/dL 8.5-10.1 Blood lactic acid measurement (moles/vol ume) - 03/17/19 22:50 Blood lactic acid measurement (moles/volume) 0.94 mmol/L 0.50-2.00 Bacterial blood culture - 03/17/19 22:50 Bacterial blood culture [facility] Bacterial blood culture - 03/17/19 23:35 Bacterial blood culture [facility] Comprehensive metabolic panel - 03/18/19 05:25 Serum or plasma sodium measurement (moles/volume) 137 mmol/L 135-145 Serum or plasma potassium measurement (moles/volume) 3.8 mmol/L 3.6-5.0 Serum or plasma chloride measurement (moles/volume) 107 mmol/L 98-107 Carbon dioxide 16 mmol/L 21-32 Serum or plasma anion gap determination (moles/volume) 14 mmol/L 5-14 Serum or plasma urea nitrogen measurement (mass/volume ) 8 mg/dL 7-18 Serum or plasma creatinine measurement (mass/volume) 0.70 mg/dL 0.60-1.30 Serum or plasma urea nitrogen/creatinine mass ratio 11 NRG Serum or plasma creatinine measurement w ith calculation of estimated glomerular filtration rate > NRG Serum or plasma glucose measurement (mass/volume) 127 mg/dL 70-105 Serum or plasma calcium measurement (mass/volume) 8.1 mg/dL 8.5-10.1 Serum or plasma total bilirubin measurement (mass/volu me) 0.7 mg/dL 0.1-1.0 Serum or plasma alkaline phosphatase nathan surement (enzymatic activity/volume) 46 U/L 40-136 Serum or plasma aspartate aminotransfera se measurement (enzymatic activity/volume) 18 U/L 5-34 Serum or plasma alanine aminotransferase measurement (enzymatic activity/volume) 17 U/L 0-55 Serum or plasma protein measurement (mass/volume) 6.2 g/dL 6.4-8.2 Serum or plasma albumin measurement (mass/volume) 3.5 g/dL 3.2-4.5 CALCIUM CORRECTED 8.5 mg/dL 8.5-10.1 Complete blood count (CBC) with automate d white blood cell (WBC) differential - 03/18/19 07:15 Blood leukocytes automated count (number/volume) 29.6 10*3/uL 4.3-11.0 Blood erythrocytes automated count (number/volume) 3.67 10*6/uL 4.35-5.85 Venous blood hemoglobin measurement (mass/volume) 11.0 g/dL 11.5-16.0 Blood hematocrit (volume fraction) 33 % 35-52 Automated erythrocyte mean corpuscular volume 90 [ foz_us] 80-99 Automated erythrocyte mean corpuscular h emoglobin (mass per erythrocyte) 30 pg 25-34 Automated erythrocyte mean corpuscular h emoglobin concentration measurement (mass/volume) 33 g/dL 32-36 Automated erythrocyte distribution width ratio 12. 5 % 10.0- 14.5 Automated blood platelet count (count/volume) 258 10*3/uL 130-400 Automated blood platelet mean volume measurement 10.3 [foz_us] 7.4-10.4 Automated blood neutrophils/100 leukocytes 90 % 42-75 Automated blood lymphocytes/100 leukocytes 4 % 12-44 Blood monocytes/100 leukocytes 7 % 0-12 Automated blood eosinophils/100 leukocytes 0 % 0-10 Automated blood basophils/100 leukocytes 0 % 0-10 Blood neutrophils automated count (number/volume) 26.5 10*3 1.8-7.8 Blood lymphocytes automated count (number/volume) 1.0 10*3 1.0-4.0 Blood monocytes automated count (number/volume) 2. 0 10*3 0.0-1.0 Automated eosinophil count 0.0 10*3/uL 0 .0-0.3 Automated blood basophil count (count/volume) 0.0 10*3/uL 0.0-0.1 Blood manual differential performed dete ction - 03/18/19 07:15 Blood monocytes/100 leukocytes 4 % NRG Manual blood segmented neutrophils/100 leukocytes 95 % NRG Manual blood lymphocytes/100 leukocytes 1 % NRG Blood erythrocyte morphology finding identification NORMAL NR Blood lactic acid measurement (moles/vol ume) - 03/18/19 08:55 Blood lactic acid measurement (moles/volume) 1.41 mmol/L 0.50-2.00 Arterial blood gas measurement - 9 09:53 Blood pCO2 31 mm[Hg] 35-45 Blood pO2 100 mm[Hg] 79-93 Arterial blood bicarbonate measurement (moles/volume) 20 mmol/L 23-27 Arterial blood base excess by calculation -4.2 mmo l/L -2.5-2.5 Arterial blood oxygen saturation measurement 99 % 94-100 * Inhaled oxygen flow rate ROOM AIR NRG Arterial blood pH measurement with patient temperature correction 7.42 7.37-7.43 Arterial blood carbon dioxide, total measurement (mole s/volume) 20.5 mmol/L 21.0-31.0 Body site LEFT RADIAL NRG Assessment of wrist artery patency prior to arterial p uncture YES-POS NRG Setting of ventilation mode NO NR G Measurement of body temperature 97.9 NRG Complete blood count (CBC) with automate d white blood cell (WBC) differential - 03/19/19 03:50 Blood leukocytes automated count (number/volume) 14.9 10*3/uL 4.3-11.0 Blood erythrocytes automated count (number/volume) 2.88 10*6/uL 4.35-5.85 Venous blood hemoglobin measurement (mass/volume) 8.5 g/dL 11.5-16.0 Blood hematocrit (volume fraction) 26 % 35-52 Automated erythrocyte mean corpuscular volume 90 [ foz_us] 80-99 Automated erythrocyte mean corpuscular h emoglobin (mass per erythrocyte) 30 pg 25-34 Automated erythrocyte mean corpuscular h emoglobin concentration measurement (mass/volume) 33 g/dL 32-36 Automated erythrocyte distribution width ratio 12. 4 % 10.0- 14.5 Automated blood platelet count (count/volume) 212 10*3/uL 130-400 Automated blood platelet mean volume measurement 10.5 [foz_us] 7.4-10.4 Automated blood neutrophils/100 leukocytes 87 % 42-75 Automated blood lymphocytes/100 leukocytes 8 % 12-44 Blood monocytes/100 leukocytes 5 % 0-12 Automated blood eosinophils/100 leukocytes 0 % 0-10 Automated blood basophils/100 leukocytes 0 % 0-10 Blood neutrophils automated count (number/volume) 13.0 10*3 1.8-7.8 Blood lymphocytes automated count (number/volume) 1.1 10*3 1.0-4.0 Blood monocytes automated count (number/volume) 0. 8 10*3 0.0-1.0 Automated eosinophil count 0.0 10*3/uL 0 .0-0.3 Automated blood basophil count (count/volume) 0.0 10*3/uL 0.0-0.1 Whole blood basic metabolic panel - 03/01 08/19 03:50 Serum or plasma sodium measurement (moles/volume) 137 mmol/L 135-145 Serum or plasma potassium measurement (moles/volume) 2.8 mmol/L 3.6-5.0 Serum or plasma chloride measurement (moles/volume) 108 mmol/L 98-107 Carbon dioxide 20 mmol/L 21-32 Serum or plasma anion gap determination (moles/volume) 9 mmol/L 5-14 Serum or plasma urea nitrogen measurement (mass/volume ) 6 mg/dL 7-18 Serum or plasma creatinine measurement (mass/volume) 0.60 mg/dL 0.60-1.30 Serum or plasma urea nitrogen/creatinine mass ratio 10 NRG Serum or plasma creatinine measurement w ith calculation of estimated glomerular filtration rate > NRG Serum or plasma glucose measurement (mass/volume) 111 mg/dL 70-105 Serum or plasma calcium measurement (mass/volume) 7.7 mg/dL 8.5-10.1 Serum or plasma phosphate measurement (m ass/volume) - 03/19/19 03:50 Serum or plasma phosphate measurement (mass/volume) 1.3 mg/dL 2.3-4.7 Magnesium - 03/19/19 03:50 Magnesium 1.3 mg/dL 1.8-2.4 Whole blood basic metabolic panel - 03/01 08/19 16:00 Serum or plasma sodium measurement (moles/volume) 138 mmol/L 135-145 Serum or plasma potassium measurement (moles/volume) 3.5 mmol/L 3.6-5.0 Serum or plasma chloride measurement (moles/volume) 109 mmol/L 98-107 Carbon dioxide 23 mmol/L 21-32 Serum or plasma anion gap determination (moles/volume) 6 mmol/L 5-14 Serum or plasma urea nitrogen measurement (mass/volume ) 4 mg/dL 7-18 Serum or plasma creatinine measurement (mass/volume) 0.63 mg/dL 0.60-1.30 Serum or plasma urea nitrogen/creatinine mass ratio 6 NRG Serum or plasma creatinine measurement w ith calculation of estimated glomerular filtration rate > NRG Serum or plasma glucose measurement (mass/volume) 111 mg/dL 70-105 Serum or plasma calcium measurement (mass/volume) 8.1 mg/dL 8.5-10.1 Magnesium - 03/19/19 16:00 Magnesium 2.0 mg/dL 1.8-2.4 Complete blood count (CBC) with automate d white blood cell (WBC) differential - 03/20/19 03:15 Blood leukocytes automated count (number/volume) 12.7 10*3/uL 4.3-11.0 Blood erythrocytes automated count (number/volume) 2.87 10*6/uL 4.35-5.85 Venous blood hemoglobin measurement (mass/volume) 8.4 g/dL 11.5-16.0 Blood hematocrit (volume fraction) 26 % 35-52 Automated erythrocyte mean corpuscular volume 89 [ foz_us] 80-99 Automated erythrocyte mean corpuscular h emoglobin (mass per erythrocyte) 29 pg 25-34 Automated erythrocyte mean corpuscular h emoglobin concentration measurement (mass/volume) 33 g/dL 32-36 Automated erythrocyte distribution width ratio 12. 5 % 10.0- 14.5 Automated blood platelet count (count/volume) 244 10*3/uL 130-400 Automated blood platelet mean volume measurement 10.6 [foz_us] 7.4-10.4 Automated blood neutrophils/100 leukocytes 85 % 42-75 Automated blood lymphocytes/100 leukocytes 10 % 12-44 Blood monocytes/100 leukocytes 5 % 0-12 Automated blood eosinophils/100 leukocytes 0 % 0-10 Automated blood basophils/100 leukocytes 0 % 0-10 Blood neutrophils automated count (number/volume) 10.7 10*3 1.8-7.8 Blood lymphocytes automated count (number/volume) 1.3 10*3 1.0-4.0 Blood monocytes automated count (number/volume) 0. 6 10*3 0.0-1.0 Automated eosinophil count 0.0 10*3/uL 0 .0-0.3 Automated blood basophil count (count/volume) 0.0 10*3/uL 0.0-0.1 Whole blood basic metabolic panel - 03/02 03:15 Serum or plasma sodium measurement (moles/volume) 139 mmol/L 135-145 Serum or plasma potassium measurement (moles/volume) 3.4 mmol/L 3.6-5.0 Serum or plasma chloride measurement (moles/volume) 109 mmol/L 98-107 Carbon dioxide 20 mmol/L 21-32 Serum or plasma anion gap determination (moles/volume) 10 mmol/L 5-14 Serum or plasma urea nitrogen measurement (mass/volume ) 4 mg/dL 7-18 Serum or plasma creatinine measurement (mass/volume) 0.59 mg/dL 0.60-1.30 Serum or plasma urea nitrogen/creatinine mass ratio 7 NRG Serum or plasma creatinine measurement w ith calculation of estimated glomerular filtration rate > NRG Serum or plasma glucose measurement (mass/volume) 106 mg/dL 70-105 Serum or plasma calcium measurement (mass/volume) 7.9 mg/dL 8.5-10.1 Serum or plasma phosphate measurement (m ass/volume) - 03/20/19 03:15 Serum or plasma phosphate measurement (mass/volume) 1.9 mg/dL 2.3-4.7 Magnesium - 03/20/19 03:15 Magnesium 1.8 mg/dL 1.8-2.4 Complete blood count (CBC) with automate d white blood cell (WBC) differential - 03/21/19 03:25 Blood leukocytes automated count (number/volume) 12.3 10*3/uL 4.3-11.0 Blood erythrocytes automated count (number/volume) 3.18 10*6/uL 4.35-5.85 Venous blood hemoglobin measurement (mass/volume) 9.3 g/dL 11.5-16.0 Blood hematocrit (volume fraction) 28 % 35-52 Automated erythrocyte mean corpuscular volume 88 [ foz_us] 80-99 Automated erythrocyte mean corpuscular h emoglobin (mass per erythrocyte) 29 pg 25-34 Automated erythrocyte mean corpuscular h emoglobin concentration measurement (mass/volume) 33 g/dL 32-36 Automated erythrocyte distribution width ratio 12. 3 % 10.0- 14.5 Automated blood platelet count (count/volume) 310 10*3/uL 130-400 Automated blood platelet mean volume measurement 10.4 [foz_us] 7.4-10.4 Automated blood neutrophils/100 leukocytes 80 % 42-75 Automated blood lymphocytes/100 leukocytes 14 % 12-44 Blood monocytes/100 leukocytes 6 % 0-12 Automated blood eosinophils/100 leukocytes 0 % 0-10 Automated blood basophils/100 leukocytes 0 % 0-10 Blood neutrophils automated count (number/volume) 9.8 10*3 1.8-7.8 Blood lymphocytes automated count (number/volume) 1.7 10*3 1.0-4.0 Blood monocytes automated count (number/volume) 0. 8 10*3 0.0-1.0 Automated eosinophil count 0.1 10*3/uL 0 .0-0.3 Automated blood basophil count (count/volume) 0.0 10*3/uL 0.0-0.1 Whole blood basic metabolic panel - 03/02 12/19 03:25 Serum or plasma sodium measurement (moles/volume) 138 mmol/L 135-145 Serum or plasma potassium measurement (moles/volume) 3.1 mmol/L 3.6-5.0 Serum or plasma chloride measurement (moles/volume) 106 mmol/L 98-107 Carbon dioxide 22 mmol/L 21-32 Serum or plasma anion gap determination (moles/volume) 10 mmol/L 5-14 Serum or plasma urea nitrogen measurement (mass/volume ) 5 mg/dL 7-18 Serum or plasma creatinine measurement (mass/volume) 0.65 mg/dL 0.60-1.30 Serum or plasma urea nitrogen/creatinine mass ratio 8 NRG Serum or plasma creatinine measurement w ith calculation of estimated glomerular filtration rate > NRG Serum or plasma glucose measurement (mass/volume) 99 mg/dL 70-105 Serum or plasma calcium measurement (mass/volume) 8.3 mg/dL 8.5-10.1 Magnesium - 03/21/19 03:25 Magnesium 1.8 mg/dL 1.8-2.4 Complete blood count (CBC) with automate d white blood cell (WBC) differential - 03/22/19 03:45 Blood leukocytes automated count (number/volume) 12.8 10*3/uL 4.3-11.0 Blood erythrocytes automated count (number/volume) 3.18 10*6/uL 4.35-5.85 Venous blood hemoglobin measurement (mass/volume) 9.3 g/dL 11.5-16.0 Blood hematocrit (volume fraction) 28 % 35-52 Automated erythrocyte mean corpuscular volume 89 [ foz_us] 80-99 Automated erythrocyte mean corpuscular h emoglobin (mass per erythrocyte) 29 pg 25-34 Automated erythrocyte mean corpuscular h emoglobin concentration measurement (mass/volume) 33 g/dL 32-36 Automated erythrocyte distribution width ratio 12. 6 % 10.0- 14.5 Automated blood platelet count (count/volume) 344 10*3/uL 130-400 Automated blood platelet mean volume measurement 10.2 [foz_us] 7.4-10.4 Automated blood neutrophils/100 leukocytes 75 % 42-75 Automated blood lymphocytes/100 leukocytes 17 % 12-44 Blood monocytes/100 leukocytes 7 % 0-12 Automated blood eosinophils/100 leukocytes 1 % 0-10 Automated blood basophils/100 leukocytes 0 % 0-10 Blood neutrophils automated count (number/volume) 9.7 10*3 1.8-7.8 Blood lymphocytes automated count (number/volume) 2.1 10*3 1.0-4.0 Blood monocytes automated count (number/volume) 0. 9 10*3 0.0-1.0 Automated eosinophil count 0.1 10*3/uL 0 .0-0.3 Automated blood basophil count (count/volume) 0.0 10*3/uL 0.0-0.1 Whole blood basic metabolic panel - 03/02 01/19 03:45 Serum or plasma sodium measurement (moles/volume) 140 mmol/L 135-145 Serum or plasma potassium measurement (moles/volume) 3.2 mmol/L 3.6-5.0 Serum or plasma chloride measurement (moles/volume) 107 mmol/L 98-107 Carbon dioxide 21 mmol/L 21-32 Serum or plasma anion gap determination (moles/volume) 12 mmol/L 5-14 Serum or plasma urea nitrogen measurement (mass/volume ) 8 mg/dL 7-18 Serum or plasma creatinine measurement (mass/volume) 0.65 mg/dL 0.60-1.30 Serum or plasma urea nitrogen/creatinine mass ratio 12 NRG Serum or plasma creatinine measurement w ith calculation of estimated glomerular filtration rate > NRG Serum or plasma glucose measurement (mass/volume) 96 mg/dL 70-105 Serum or plasma calcium measurement (mass/volume) 8.4 mg/dL 8.5-10.1 Magnesium - 03/22/19 03:45 Magnesium 1.8 mg/dL 1.8-2.4 Methicillin resistant Staphylococcus aur eus (MRSA) screening culture - 03/24/19 09:34 Methicillin resistant Staphylococcus aureus (MRSA) scr eening culture NEG NRG Serum or plasma choriogonadotropin measu rement (units/volume) - 03/24/19 09:40 Serum or plasma choriogonadotropin measurement (units/ volume) 50 m[iU]/mL <5 Encounters ACCT No. Visit Date/Time Discharge Status Pt. Type Provider Facility Loc./Unit Complaint [id number] 09/05/2019 09:44:00 09/05/2019 23:59: 00 DIS Outpatient SELF, PHY [id number] 06/09/2018 10:58:00 06/09/2018 23:59: 00 DIS Outpatient UNLISTED, UNLISTED [id number] 03/24/2019 09:21:00 15:15:00 DIS Outpatient ENDY HUANG MD Via [facility] SDC BILATERAL STONES [id number] 03/23/2019 05:40:00 14:48:00 DIS Outpatient ENDY HUANG MD [facility] PREOP ORESTES. URETEROSCOPY/LITHO/BASKET/POSS.ESWL [id number] 03/18/2019 01:12:00 11:00:00 DIS Inpatient TYLOR SUE DO, V [facility] 4TH ACUTE PYELONEPHRITIS [id number] 03/04/2019 14:38:00 23:59:59 CLS Outpatient JANE SUTTON DO Via [facility] RAD FIRST TRIMESTER BLEEDIN G,HX OF MISCARRIAGE [id number] 08/14/2019 16:00:00 08/14/2019 23:59:5 9 CLS Outpatient RUDY ESPINAL APRN [facility]
[2020-02-17 23:45] VITALS: BP 129/79
[2020-02-18] MEDS ORDERED: BENZONATATE 100 MG (TESSALON) CAPSULE PO ONE
--- NOTE | 2020-02-18 00:28 | ED General ---
General Chief Complaint: Cough/Cold/Flu Symptoms Stated Complaint: POSS FLU,COUGH,BODY ACHE Nursing Triage Note: cough, body ache, eye burning Nursing Sepsis Screen: No Definite Risk Source of Information: Patient Exam Limitations: No Limitations History of Present Illness Date Seen by Provider: Feb 17, 2020 Time Seen by Provider: 23:35 Initial Comments This 39-year-old woman presents to the emergency room with flulike symptoms that started on February 14. She first developed cough and that progressed to heaviness in her chest and myalgia. She had a leg cramping as well. The next day she developed headache. Her eyes were also burning. She has felt very fatigued. S he denies any travel outside the [place] or other high-risk travel. She denies any exposure to ill persons, people with coronavirus, or people under investigation for [place] virus. She is afebrile. Allergies and Home Medications Allergies Coded Allergies: No Known Drug Allergies (Unverified , 03/17/19) Home Medications Benzonatate 100 Mg Capsule, 200 MG PO TID PRN for COUGH Prescribed by: ELENA GARCIA on 02/18/20 0034 Patient Home Medication List Home Medication List Reviewed: Yes Review of Systems Review of Systems Constitutional: no symptoms reported EENTM: nose congestion Cardiovascular: no symptoms reported Gastrointestinal: no symptoms reported Genitourinary: no symptoms reported : No Musculoskeletal: see HPI, muscle pain Skin: no symptoms reported Psychiatric/Neurological: See HPI, Headache Hematologic/Lymphatic: No Symptoms Reported Immunological/Allergic: no symptoms reported Past Slfxbcv-Fijaux-Bxykiv Hx Past Med/Social Hx: Reviewed Nursing Past Med/Soc Hx Patient Social History Alcohol Use: Denies Use Recreational Drug Use: No Smoking Status: Never a Smoker 2nd Hand Smoke Exposure: No Recent Foreign Travel: No Contact w/Someone Who Travel: No Recent Infectious Disease Expo: No Recent Hopitalizations: No Physical Abuse: No Sexual Abuse: No Mistreated: No Fear: No Immunizations Up To Date Date of Pneumonia Vaccine: Mar 18, 2014 Seasonal Allergies Seasonal Allergies: No Past Medical History Surgeries: Yes (d&c x2) Section, Gallbladder Respiratory: No Cardiac: No Neurological: No : No Reproductive Disorders: No 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 0.0oz. 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 Skin: Normal Color, Warm/Dry Progress/Results/Core Measures Suspected Sepsis Recent Fever Within 48 Hours: No Infection Criteria Present: None New/Unexplained Altered Menta: No Sepsis Screen: No Definite Risk SIRS Temperature: Pulse: 98 Respiratory Rate: 18 Blood Pressure 129 /79 Mean: 96 Results/Orders Lab Results Laboratory Tests Test 02/18/20 00:04 Range/Units Group A Streptococcus Screen NEGATIVE NEGATIVE Micro Results Microbiology 02/17/20 Influenza Types A,B Antigen (PAULO) - Final, Complete My Orders Orders - ELENA CHÁVEZ MD Influenza A And B Antigens (02/17/20 23:35) Rapid Strep A Screen (02/17/20 23:35) Benzonatate Capsule (Tessalon Perles) (02/18/20 00:00) Medications Given in ED Current Medications Medications Dose Ordered Sig/Fabrizio Route Start Time Stop Time Status Last Admin Dose Admin Benzonatate 200 mg ONCE ONCE PO 02/18/20 00:00 02/18/20 00:01 DC 02/18/20 00:04 200 MG Vital Signs/I&O 02/17/20 02/17/20 23:45 23:45 Temp 36.9 Pulse 98 Resp 18 B/P (MAP) 129/79 (96) Pulse Ox 100 O2 Delivery Room Air Room Air Capillary Refill : Less Than 3 Seconds Blood Pressure Mean: 96 Progress Note : Progress Note Rapid strep and influenza screens were negative. She was treated with Tessalon Perles. We discussed utility of x-ray but after discussion elected not to perform an x-ray. Departure Impression Primary Impression: Flu-like symptoms Disposition: 01 HOME, SELF-CARE Condition: Stable Departure-Patient Inst. Decision time for Depature: 00:27 Referrals: HANG BERMAN MD (PCP/Family) Primary Care Physician Patient Instructions: Viral Upper Respiratory Infection, Adult (DC) Add. Discharge Instructions: Drink plenty of clear liquids to stay well-hydrated. Take Tylenol for fever or pain. Return to care if you have worsening symptoms. You may take Tessalon Perles as prescribed for cough. All discharge instructions reviewed with patient and/or family. Voiced understanding. Scripts Benzonatate (TESSALON PERLES) 100 Mg Capsule 200 MG PO TID PRN for COUGH, #20 CAP Prov: ELENA CHÁVEZ MD 02/18/20 Work/School Note: Work Release Form Date Seen in the Emergency Department: Feb 18, 2020 Return to Work: Feb 19, 2020 Other Restrictions Listed Below: Discussed symptoms with employer before returning to work. ELENA CHÁVEZ MD Feb 18, 2020 00:28
[2020-02-18] MEDS ORDERED: BENZ100C18 PO (00:34)
== END 2020-02-18 00:31 | disposition home or self-care (01) ==
LOC: EDUNIT# 23:29 → ER 23:34
DX: R05 Cough (principal); R07.89 Other chest pain; M79.10 Myalgia, unspecified site
CPT/HCPCS: 87430; 87804

== ENCOUNTER → 2023-01-28 | Outpatient (RCR) | payer BC, OTHER ==
[~2023-01-28] MED LIST changes: +BENZ100C18 PO
== END | disposition home or self-care (01) ==
PROVIDERS: ATTEND Family Medicine
DX: M54.9 Dorsalgia, unspecified (principal)

== ENCOUNTER 2023-02-27 08:01 | Outpatient (RCR) | payer OTHER | END 2023-02-28 | disposition home or self-care (01) | PROVIDERS: ATTEND Family Medicine | DX: M54.9 Dorsalgia, unspecified (principal) ==

== ENCOUNTER 2023-03-12 08:30 | Outpatient (RCR) | payer OTHER | END 2023-03-30 | disposition home or self-care (01) | PROVIDERS: ATTEND Family Medicine | DX: M54.50 Low back pain, unspecified (principal) ==